=== PATIENT | male | born 1945 | race Caucasian/White ===

== ENCOUNTER → 2020-07-16 08:34 | Outpatient (CLI) | payer MEDICARE, SELFPAY | PROVIDERS: Visit Provider Emergency Medicine | DX: E03.9 Hypothyroidism, unspecified (principal) | CPT/HCPCS: 36415; 84443 ==

== ENCOUNTER 2020-07-17 10:08 | Inpatient (IN) | payer MEDICARE, SELFPAY ==
[2020-07-17] VITALS (32 sets, daily range): BP systolic 64–135; BP diastolic 0–91; PULSE 0–101; RESP 6–24; TEMP 36.7–37.4; O2SAT 78–100; BMI 26.6; BMI 27.8; BMI 25.4
--- NOTE | 2020-07-17 | XR_ITS ---
PROCEDURE: XR CHEST PORTABLE CLINICAL HISTORY: RESP DISTRESS Patient unconscious COMPARISON: No exams were available for comparison FINDINGS: The lung merchant are fairly well expanded. There are monitor lines overlying the chest and a a resuscitation pad overlying the right mid chest somewhat obscuring the underlying lung. There may be minimal atelectasis or scarring in left perihilar region. There is a tracheostomy cannula in good position. Cardiac size is grossly normal, there are sternal wire sutures surgical clips likely from previous CABG. IMPRESSION: Probable left perihilar atelectasis or scarring, otherwise no significant acute chest pathology noted Dictated by: Dr. Francisco Ocampo MD 07/17/2020 10:58 Dr. Francisco Ocampo MD in [place] 07/17/2020 10:58
--- NOTE | 2020-07-17 10:24 | ECG_ITS ---
APPROVED REPORT Exam: Resting ECG HR:97 bpm ECG Measurements Heart Rate 97 AXES GA 146 P 14 QRSd 150 QRS -89 QT 426 T 83 QTc 541 Conclusion Normal sinus rhythm Left axis deviation Right bundle branch block Possible Lateral infarct, age undetermined Abnormal ECG Electronically signed by : Max Graham, 07/18/2020 17:48:17
--- NOTE | 2020-07-17 10:45 | PC.NURSE ---
spoke with pts daughter on the phone (Thalia Amanda) who is also pts POA. Pt daughter does confirm pt is a full code status. States she lives several hours from here and would not be able to come up here. States [facility] and she would consent [facility]. Stated to pts daughter that we will contact her back with a POC for pt.
[2020-07-17 10:50] LABS: Adenovirus,PCR Not Detected (NotDetected); Bordetella Pertussis Not Detected (NotDetected); Chlamydophila Pneumoniae, PCR Not Detected (NotDetected); Coronavirus 19, PCR Not Detected (NotDetected); Coronavirus 229E Not Detected (NotDetected); Coronavirus NL63 Not Detected (NotDetected); Coronavirus OC43 Not Detected (NotDetected); Coronovirus HKU1,PCR Not Detected (NotDetected); Human Metapneumovirus Not Detected (NotDetected); Influenza A, PCR Not Detected (NotDetected); Influenza AH1, 2009 Not Detected (NotDetected); Influenza AH1, PCR Not Detected (NotDetected); Influenza AH3,PCR Not Detected (NotDetected); Influenza B, PCR Not Detected (NotDetected); Mycoplasma Pneumoniae, PCR Not Detected (NotDetected); Parainfluenza 1, PCR Not Detected (NotDetected); Parainfluenza 2, PCR Not Detected (NotDetected); Parainfluenza 3, PCR Not Detected (NotDetected); Parainfluenza 4, PCR Not Detected (NotDetected); Respiratory Syncytial Virus Not Detected (NotDetected); Rhinovirus/Enterovirus Not Detected (NotDetected)
[2020-07-17 11:00] LABS: ABG Base Excess 3.4 mmol/L (-2.4-2.3); ABG HCO3 28.3 mmhg (22.0-26.0); ABG Oxygen Saturation 100 % (90-100); ABG PCO2 47.2 mmhg (35.0-45.0); ABG PO2 408.9 mmhg (80-100); ABG TCO2 29.7 mmhg (23-27); Oxygen 100 AMBU %
[2020-07-17 11:01] LABS: Source L FEMORAL
--- NOTE | 2020-07-17 11:17 | PC.NURSE ---
Called radiology for chest xray
--- NOTE | 2020-07-17 11:19 | HMH.EDGENADL ---
ED Disposition Clinical Impression: Cardiac arrest, Hypernatremia Respiratory failure Qualifiers: Chronicity: acute Respiratory failure complication: hypoxia Qualified Code(s): J96.01 - Acute respiratory failure with hypoxia Hypotension Qualifiers: Hypotension type: unspecified hypotension type Qualified Code(s): I95.9 - Hypotension, unspecified Disposition: Admitted As Inpatient Condition on Discharge: Serious - Critical Care Critical Care Time: Yes Attestation: On 07/17/20, the high probability of a clinically significant, sudden or life threatening deterioration of the following system(s) required my full and direct attention, intervention and personal management. The time I documented below is in addition to time spent performing reported procedures but includes the following listed in this critical care notation. Total Critical Care Time: 45 Vital system(s) involved:: Circulatory Failure, Respiratory Failure My critical care processes included: Assessment & monitoring of V/S, Initial and Re-exams, Data Review/Interpretation, Coordinating Care, Medication Orders and management, Documentation Medical Decision Making - Medical Records Medical records reviewed: Yes: I reviewed the patient's medical records. MR Comment: half-way records reviewed. - Martin Inquiry Pt receiving controlled substance: No Vital Signs: 07/17/20 10:10 07/17/20 10:37 07/17/20 11:10 Temperature Temperature Source Pulse Rate 87 Pulse Rate [Bilateral Femoral] 0 L Respiratory Rate 6 L 24 24 Blood Pressure Blood Pressure [Right Arm] 64/0 L Blood Pressure Mean Blood Pressure Mean [Right Arm] 21 Blood Pressure Source [Right Arm] Manual Cuff/ Palpation Blood Pressure Position [Right Arm] Supine 02 Sat by Pulse Oximetry 78 L 99 94 L Oxygen Delivery Method Trach Collar/ Tube Mechanical Ventilation 07/17/20 11:11 07/17/20 11:15 07/17/20 11:26 Temperature Temperature Source Pulse Rate 87 86 Pulse Rate [Bilateral Femoral] Respiratory Rate 24 24 24 Blood Pressure 81/41 L 91/46 L Blood Pressure [Right Arm] Blood Pressure Mean 50 56 Blood Pressure Mean [Right Arm] Blood Pressure Source [Right Arm] Blood Pressure Position [Right Arm] 02 Sat by Pulse Oximetry 90 L 96 Oxygen Delivery Method 07/17/20 11:30 07/17/20 11:45 07/17/20 12:00 Temperature Temperature Source Pulse Rate 85 88 84 Pulse Rate [Bilateral Femoral] Respiratory Rate 24 24 Blood Pressure 88/44 L 88/44 L 102/51 L Blood Pressure [Right Arm] Blood Pressure Mean 56 62 Blood Pressure Mean [Right Arm] Blood Pressure Source [Right Arm] Blood Pressure Position [Right Arm] 02 Sat by Pulse Oximetry 92 L 96 99 Oxygen Delivery Method Trach Collar/ Tube Mechanical Ventilation 07/17/20 12:15 07/17/20 12:25 07/17/20 12:30 Temperature Temperature Source Pulse Rate 81 78 Pulse Rate [Bilateral Femoral] Respiratory Rate 24 22 Blood Pressure 98/48 L 97/50 L Blood Pressure [Right Arm] Blood Pressure Mean 60 62 Blood Pressure Mean [Right Arm] Blood Pressure Source [Right Arm] Blood Pressure Position [Right Arm] 02 Sat by Pulse Oximetry 97 98 Oxygen Delivery Method Trach Collar/ Tube Mechanical Ventilation 07/17/20 12:45 07/17/20 13:00 07/17/20 13:10 Temperature Temperature Source Pulse Rate 84 82 Pulse Rate [Bilateral Femoral] Respiratory Rate 24 24 18 Blood Pressure 98/55 L 103/57 L Blood Pressure [Right Arm] Blood Pressure Mean 70 Blood Pressure Mean [Right Arm] Blood Pressure Source [Right Arm] Blood Pressure Position [Right Arm] 02 Sat by Pulse Oximetry 99 98 98 Oxygen Delivery Method 07/17/20 13:15 07/17/20 13:30 07/17/20 15:35 Temperature 98.1 F Temperature Source Axillary Pulse Rate 77 75 84 Pulse Rate [Bilateral Femoral] Respiratory Rate 18 18 22 Blood Pressure 105/56 L 94/52 L 108/62 L Blood Pre
--- NOTE | 2020-07-17 11:20 | XR_ITS ---
PROCEDURE: XR CHEST PORTABLE CLINICAL HISTORY: central venous catheter placement COMPARISON: CR XR CHEST PORTABLE from 07/17/2020 FINDINGS: 11:22 a.m.. Right IJ central venous line has been inserted. The tip is in the region the distal SVC. No evidence of pneumothorax. 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 Tracheostomy tube is present. Monitoring device noted overlying the right lower chest. No lobar consolidation or collapse. IMPRESSION: Right IJ central line insertion as described above. No evidence of pneumothorax. The tip overlies the distal SVC region Dictated by: Manav Chan MD 07/17/2020 12:34 Manav Chan MD in [facility] 07/17/2020 12:34
[2020-07-17 11:44] LABS: Basophils % 0.1 % (0.1-2.0); Eosinophils % 0.1 % (0.1-12.0); Hematocrit 28.7 % (42.0-52.0); Hemoglobin 9.1 g/dL (14.1-18.0); Lymphocytes # 0.6 K/mm3 (0.7-4.5); Lymphocytes % 5.2 % (10-50); Mean Corpuscular HGB Conc 31.7 g/dL (31.8-35.4); Mean Corpuscular Hemoglobin 27.7 pg (27.0-31.2); Mean Corpuscular Volume 87.2 fl (80-94); Mean Platelet Volume 8.4 fl (7.4-10.4); Monocytes # 0.6 K/mm3 (0.1-1.0); Monocytes % 4.7 % (1.7-9.3); Neutrophils # 10.6 K/mm3 (1.8-7.8); Neutrophils % 89.9 % (37.0-80.0); Platelet Count 186 K/mm3 (142-424); Red Blood Count 3.29 M/mm3 (4.60-6.20); Red Cell Distribution Width 15.3 % (11.5-17.5); White Blood Count 11.8 K/mm3 (4.8-10.8)
[2020-07-17 11:47] LABS: MANUAL DIFFERENTIAL MANUAL DIFFERENTIAL (MANUAL DIFF)
[2020-07-17 11:54] LABS: Chloride 116 mmol/L (98-107); Potassium 4.4 mmoL/L (3.5-5.1)
[2020-07-17 11:56] LABS: Blood Urea Nitrogen 63 mg/dl (9-20); Creatinine Clearance Estimated 58 mL/min (50-200); Estimated Glomerular Filt Rate 49 ml/min (>60); GFR (African American) 60 ML/MIN (>60)
[2020-07-17 11:57] LABS: Alanine Aminotransferase 51 U/L (12-78); Albumin Level 2.5 g/dl (3.5-5.0); Alkaline Phosphatase 74 U/L (38-126); Anion Gap 11.4 mEq/L (5-15); Aspartate Amino Transferase 55 U/L (17-59); Bilirubin,Total 0.4 mg/dl (0.2-1.3); Calcium 8.4 mg/dl (8.4-10.2); Carbon Dioxide 29 mmol/L (22.0-30.0); Globulin 2.6 g/dL (1.3-3.2); Glucose 268 mg/dl (74-100); Total Protein,Serum 5.1 g/dl (6.3-8.2)
[2020-07-17 11:59] LABS: Eosinophils % 1 % (0-3); Hypochromasia 1+; Lymphocytes % 5 % (10-50); Monocytes % 5 % (2-9); Neutrophils % 89 % (42-76); Platelet Estimate Normal; Total Cells Counted 100
[2020-07-17 12:01] LABS: Lactic Acid 2.8 mmol/L (0.7-2.1)
--- NOTE | 2020-07-17 12:01 | PC.NURSE ---
Dr. Owens notified of critical Sodium of 151.
[2020-07-17 12:02] LABS: Sodium 152 mmol/L (136-145)
--- NOTE | 2020-07-17 12:02 | PC.NURSE ---
Kierra called from Lab with critical sodium 152
[2020-07-17 12:09] LABS: Troponin I 0.13 ng/ml (0.00-0.034)
--- NOTE | 2020-07-17 12:11 | PC.NURSE ---
patient came in via [facility]. when patient was transferred to [place] it was discovered that his trach cuff was deflated. resp. care inflated cuff and continued bagging
[2020-07-17 12:13] LABS: Microscopic,Cath URINE MICROSCOPIC (MICROSCOPIC)
--- NOTE | 2020-07-17 12:15 | PC.NURSE ---
Titrated norepinepherine up to 3mcg/min d/t map of 64.
[2020-07-17 12:29] LABS: Appearance,Urine/Cath CLEAR (Clear); Bilirubin,Cath Negative (Negative); Blood, Urine/Cath 2+ (Negative); Color,Urine/Cath YELLOW (Yellow); Glucose,Urine/Cath (UA) Negative (Negative); Ketones,Urine/Cath Negative (Negative); Leukocyte Esterase,Cath TRACE (Negative); Nitrate,Cath POSITIVE (Negative); Protein,Urine/Cath 1+ (Negative); Urobilinogen,Cath 0.2 EU/dl (0.2)
[2020-07-17 12:39] LABS: Bacteria,Urine/Cath 3+ /lpf
[2020-07-17 12:47] LABS: ABG Base Excess 4.4 mmol/L (-2.4-2.3); ABG HCO3 26.9 mmhg (22.0-26.0); ABG Oxygen Saturation 95 % (90-100); ABG PCO2 31.7 mmhg (35.0-45.0); ABG PO2 66.6 mmhg (80-100); ABG TCO2 27.8 mmhg (23-27); Allen's Test Patient Unable; Oxygen 100 %; PEEP 5; Source Right Radial; Tidal Volume 480; Vent Rate 24
[2020-07-17 12:50] LABS: ABG PH 7.55 mmol/L (7.35-7.45)
--- NOTE | 2020-07-17 13:15 | PC.NURSE ---
[facility] info given and said they would call back.
--- NOTE | 2020-07-17 13:33 | PC.NURSE ---
titrated levophed up to 4mcg/min
--- NOTE | 2020-07-17 13:35 | PC.NURSE ---
Dr. Owens speaking with Dr. Hidalgo
--- NOTE | 2020-07-17 13:37 | CA_ITS ---
APPROVED REPORT EXAM: Comprehensive 2D, Doppler, and color-flow Echocardiogram Music Pastor: RADHA Baum, RVS Ht: 5 ft 11 in Wt: 200lbs BSA: 2.11 BP: 102/51 mmHg Rhythm: RBBB Indications: respiratoy failure, Hypoxia, RBBB Echo Enhancing Agent Comments: Pt supine and ventillaed throughout exam poor acoustics throughout. 2D Dimensions Aortic Root 3.57 cm LA Volume 42.40 mL Left Atrium 2.67 cm LA Volume Index 20.10 mL/m2 (M/F) 16-34 LVOT 1.87 cm (M/F) 1.5-2.5 M-Mode Dimensions RVDd 2.26 cm (0.9-2.6) LA Diam 2.94 cm (1.9-4.0) LVDd 6.09 cm (3.5-5.7) Ao Diam 3.75 cm (2.0-3.7) LVDs 4.82 cm (3.5-5.7) IVSd 1.11 cm (0.6-1.1) PWd 0.85 cm (0.6-1.1) EF (Teich) 38.00% EPSs 1.41 cm FS 18.70% EDV (Teich) 175.20 mL TAPSE 0.72 (<1.7) ESV (Teich) 108.60 mL LV Diastology E Decel Time 207.00 (160-240 msec) E/A Ratio 1.11 MED E' 6.50 (< 7 cm/sec) MED A' 8.60 cm/s E'/MED E' Ratio 11.62 (>14) LAT E' 7.00 (<10 cm/sec) LAT A' 7.30 cm/s E/LAT E' Ratio 10.79 (>14) Aortic Valve LVOT Max 79.00 (70-110 cm/s) LVOT VTI 11.76 cm AI PHT 416.00 ms AO Peak GR. 3.70 mmHg Mitral Valve MV E Max Michael. 76.00 (40-130 cm/s) MV A Velocity 68.00 (40-130 cm/s) E/A Ratio 1.11 MV Decel. Time 207.00 (160-240 ms) MV Mean Gr. 1.00 (<2mmHg) MV PHT 61.00 ms Pulmonary Valve PV Peak Velocity 51.00 (50-150 cm/s) Tricuspid Valve TR P. Velocity 183.00 cm/s RAP Estimate 10.00 mmHg RVSP 23.40 mmHg Left Ventricle Technically difficult study because of the patient factors and poor acoustic windows, repeat study with Definity contrast is recommended, left atrium is mildly enlarged, left ventricle is normal size, mild concentric left ventricular hypertrophy, reduced left ventricular systolic function, visually estimated ejection fraction 35 to 40%, there appears to be moderate hypokinesis involving the inferior inferolateral and posterior wall. Grade 2 diastolic dysfunction seen without tissue Doppler evidence of raise left atrial pressure. Right Ventricle Right atrium and right ventricle are normal size and contractility. Aortic Valve Aortic valve is thickened and calcified there is no aortic stenosis, there is mild aortic insufficiency. Mitral Valve Mitral valve leaflets are minimally thickened, there is mild mitral regurgitation. Tricuspid Valve Tricuspid valve grossly normal, there is mild tricuspid regurgitation, tricuspid regurgitation jet velocity is inadequate for calculation of the right ventricular systolic pressure. Pulmonic Valve Pulmonic valve is poorly visualized. Great Vessels Aortic root is normal size. Pericardium Small pericardial effusion noted. Conclusion 1. Mildly enlarged left atrium, normal left ventricular size, mild concentric left ventricular hypertrophy, visually estimated ejection fraction 35 to 40% with segmental wall motion abnormality described above, endocardial surfaces are poorly visualized, repeat study with Definity contrast is recommended. Grade 2 diastolic dysfunction seen without tissue Doppler evidence of raise left atrial pressure. 2. Mild aortic, mild mitral and tricuspid regurgitation. 3. Small pericardial effusion noted. Electronically signed by : Maninder Cruz, 07/17/2020 19:50:09
--- NOTE | 2020-07-17 13:38 | CT_ITS ---
PROCEDURE: CT ANGIO CHEST CLINCIAL INDICATION: hypoxia COMPARISON: No exams were available for comparison TECHNIQUE: IV Contrast: 70ML Isovue 370 Axial images obtained with sagittal and coronal reformats. All CT scans at the facility use one or more dose reduction, viz: automated exposure control, ma/kV adjustment per patient size (including targeted exams where dose is matched to indication, i.e. head), or iterative reconstruction technique. FINDINGS: There is a tracheostomy tube present in good position. Fluid density is present cephalad to the tracheostomy. No evidence of aortic aneurysm or dissection. 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 No evidence of pulmonary embolus. The peripheral pulmonary arteries are not well opacified in the posterior lung bases but may be related to underlying atelectatic changes. A definite embolus is not identified. There are COPD changes. There is a patchy area of infiltrate in the left upper lobe superiorly suspicious for a small area of pneumonia. There is also atelectatic changes in the left lower lobe with some mild opacification also suspicious for pneumonia. Nodular opacity is present in the left lower lobe posteriorly measuring 12 mm and may be due to an area of focal atelectatic change. Atelectatic changes are present posteriorly. There is trace left-sided pleural effusion. There are mild atelectatic changes in the right middle lobe. No acute bony findings. There is bilateral gynecomastia. Scattered gas is present in the region of the left subclavian vein. IMPRESSION: 1. No definite pulmonary embolus. 2. COPD with scattered areas of atelectatic and fibrotic change with pneumonia in the left upper lobe and possibly left lower lobe with trace left effusion. 3. Tracheostomy tube present. Fluid is present above the entrance of the tube into the trachea. Dictated by: Manav Chan MD 07/17/2020 16:06 Manav Chan MD in [place] 07/17/2020 16:06
--- NOTE | 2020-07-17 13:43 | PC.NURSE ---
spoke with Jeanette, subwarehouse supervisor, and Angelique, Care management, regarding the need for pt admission.
--- NOTE | 2020-07-17 14:48 | SW/DCPLANNER ---
Addendum entered by [facility] 07/23/20 11:14: I will also notify [facility]PS worker regarding placement. Addendum entered by [facility] 07/23/20 11:11: [facility] has denied this patient. Daughter is agreeable to [facility]. This patient will discharge to [facility] today once PICC is completed, IV antibiotics are administered for today and COVID swab is resulted. Addendum entered by [facility] 07/23/20 09:48: I have spoke with daughter this morning regarding patient being accepted to [facility]. Daughter stated that she spoke with nursing facility in [facility] where she resides ([facility]) and would like for his information to be faxed there. I spoke with Reyna at [place] [facility] and have faxed information. I informed daughter that precert has been started at [facility] and if I do not hear back from [facility] then patient will be ready for discharge to [facility] today. Daughter agreed with this plan. I will continue to follow up with facilities. [place] phone: [phone] fax: [phone] Addendum entered by [facility] 07/23/20 07:18: I was contacted by Dena from [facility] late afternoon on Thursday: stating that she is willing to accept this patient at time of discharge. I will follow up with MD and family this morning regarding [facility]. Discharge date is unknown at this time. Addendum entered by [facility] 07/20/20 14:50: Lalita with [facility] has been to [facility] to evaluate this patient. Lalita stated that she is going to be making contact with patients daughter (Thalia) and Shadi Campbell then will follow up with me Thursday morning. Lalita cell: [phone] Addendum entered by [facility] 07/20/20 14:30: Patient information has also been faxed to [facility] and [facility]. Addendum entered by [facility] 07/20/20 13:51: [facility] and [facility] are currently reviewing this patients information. I have left a voicemail for [facility], [facility] and [facility] w/ no call back at this time. [facility] can NOT accept this patient due to not actively being on ventilator. I will continue to follow up with facilities. Lalita with [facility] has contacted me stating that she will be here this afternoon to evaluate this patient. Patient is not ready for discharge at this time. Addendum entered by Leola Holyoke 07/20/20 11:48: Patient information has been faxed to Milvia with [facility]. I will follow up with Milvia once patient information is reviewed. phone: [phone] fax: [phone] Addendum entered by Leola Holyoke 07/19/20 14:16: Patients daughter is present to visit patient. I spoke with daughter in patients room regarding discharge plans. Daughter did speak with Shadi Campbell and decided to not do bedhold. Daughter is aware that current facilities reviewing patients information: [facility], [facility], added to waiting list at [facility]. I will continue to follow up with facilities, family and MD. Discharge date is unknown at this time. Case was reported to [facility] however I have not heard back from a [facility] at this time. Addendum entered by [facility] 07/19/20 10:40: Patient information has also been faxed to Tara at [facility]. phone: [phone] fax: [phone] Addendum entered by Leola Holyoke 07/19/20 10:03: This case did meet criteria with [facility] Intake. I have also faxed patient information to [facility] in [facility]: [facility] has stated that they do have a lengthy waiting list but can add him. [facility] phone: [phone] fax: [phone] Addendum entered by Leola Holyoke 07/18/20 14:53: Rishabh with [facility] has called back stating they have had this patient in the past and they are interested in reviewing patient information. Rishabh has stated that they can NOT accept patients on vent
--- NOTE | 2020-07-17 15:29 | HMH.CNCARD ---
History of Present Illness Consult date: 07/17/20 Requesting physician: Dimitrios Owens Consult reason: shortness of breath Chief complaint: Respiratory Distress History of present illness: 75-year-old male presented to the ED in respiratory distress. Patient is a resident of [facility]. Upon arriving into the emergency room, patient went into cardiac arrest. radiation monitor revealed asystole. Cardiac elicitation began and lasting for 16 minutes. radiation monitor revealed normal sinus rhythm, left axis deviation, right bundle branch block, abnormal ECG with a heart rate of 97 bpm. Patient remains hypotensive. Patient is on a norepinephrine drip. Patient is unable to respond. Patient does have tracheostomy in place. Rai-yspke-pduu ventilation to the tracheostomy noted. Patient is at 100% on ventilation. Patient does have gastrotomy tube. Patient is a quadriplegic. Patient is a diabetic. Unable to receive much information regarding this patient due to patient being new to [facility]. Troponin x1 elevated at 0.13 this is possibly due to to compressions being performed. Lab work revealed sodium 152. Preliminary echocardiogram reveals abnormal. Mid posterior questionable aneurysm and global hypokinesis with an EF measuring 35 to 40%. Waiting on official report. Patient is currently on a norepinephrine drip. Managed by PCP. Benito catheter intact draining dark yellow urine. Discussed plan of care with Dr. Ribeiro. Obtain echocardiogram to assess LV function and valve status. Management of diabetes deferred to PCP. Pending on the results of the echocardiogram changes to medication and therapy treatment may be recommended. Please continue to monitor patient status. Please notify cardiology of any changes in patient status. Patient does need supportive care at this time. Thank you for allowing cardiology to participate in the care of this patient. [facility] History *Have you ever received a pneumonia vaccine?: Yes *Have you received a flu vaccine this season?: Yes - *Social History *Occupational Status:: other *Travel in the last 8 weeks: Inside the [place] Family Hx:: Unable to obtain Meds Home Medications Medication Instructions Recorded Confirmed Type ALPRAZolam [Xanax 0.5mg tab] 0.5 mg NG-TUBE BID 07/17/20 07/17/20 History Amiodarone HCl [Pacerone] 200 mg NG-TUBE HS 07/17/20 07/17/20 History Apixaban [Eliquis] 5 mg NG-TUBE BID 07/17/20 07/17/20 History Aspirin [Aspirin 81mg chewable 81 mg PO DAILY 07/17/20 07/17/20 History tab] Atorvastatin Calcium [Lipitor 40mg 40 mg PO HS 07/17/20 07/17/20 History Tablet*] Benztropine Mesylate [Cogentin 1mg 1 mg NG-TUBE DAILY 07/17/20 07/17/20 History tablet] Folic Acid 1 mg NG-TUBE DAILY 07/17/20 07/17/20 History Insulin Detemir [Levemir Flextouch] 15 unit SQ DAILY 07/17/20 07/17/20 History Insulin Lispro [HumaLOG 100 3 units SQ HS 07/17/20 07/17/20 History units/mL 3mL vial (SSI)] Multivit with Calcium,Iron,Min 1 each NG-TUBE DAILY 07/17/20 07/17/20 History [Maximum Daily Multivitamin] levothyroxine 88 mcg tablet 88 mcg PO DAILY 07/17/20 History polyethylene glycoL 3350 [Gavilax] 17 gm NG-TUBE DAILY 07/17/20 07/17/20 History Allergies Allergy/AdvReac Type Severity Reaction Status Date / Time linezolid [From Zyvox] Allergy Verified 07/17/20 11:47 vancomycin Allergy Verified 07/17/20 11:47 Exam Vital signs and Labs for Last 24 Hours: Pulse Resp BP Pulse Ox 75 18 94/52 L 99 07/17/20 13:30 07/17/20 13:30 07/17/20 13:30 07/17/20 13:30 Laboratory Results - last 24 hr 07/17/20 09:31: Specimen Source L femoral, O2 % 100 ambu, ABG pH 7.40, ABG pCO2 47.2 H, ABG pO2 408.9 H, ABG HCO3 28.3 H, ABG Total CO2 29.7 H, ABG O2 Saturation 100, ABG Base Excess 3.4 H 07/17/20 11:23: WBC 11.8 H, RBC 3.29 L, Hgb 9.1 L, Hct 28.7 L, MCV 87.2, MCH 27.7, MCHC 31.7 L, RDW 15.3, Plt Count 186, MPV 8.4, Neut
--- NOTE | 2020-07-17 15:31 | P.CONPHA_ITS ---
[facility] Pharmacy VTE Monitoring - Patient Demographics Admission date: 07/17/20 Report Date: 07/17/20 Time: 15:31 Allergies/Adverse Reactions: Patient Allergies linezolid [From Zyvox] Allergy (Verified 07/17/20 11:47) vancomycin Allergy (Verified 07/17/20 11:47) Height: 1.8 m Weight: 90.718 kg Patient Problems: Current Active Problems Respiratory failure (Acute) Cardiac arrest (Acute) Hypotension (Acute) Hypernatremia (Acute) - VTE Risk Labs: VTE Related Lab Results Hgb 9.1 g/dL (14.1-18.0) L 07/17/20 11:23 Hct 28.7 % (42.0-52.0) L 07/17/20 11:23 Plt Count 186 K/mm3 (142-424) 07/17/20 11:23 BUN 63 mg/dl (9-20) H 07/17/20 11:23 Creatinine 1.40 mg/dl (0.66-1.25) H 07/17/20 11:23 Estimated Creat Clear 58 mL/min (50-200) 07/17/20 11:23 Clinical Trial Participant: No - Prophylaxis VTE Prophylaxis Ordered?: Yes Types of VTE Prophylaxis: TEDS Knee High
--- NOTE | 2020-07-17 15:35 | PC.NURSE ---
preliminary echo report called to libby greer with cardiology, report sheet was faxed to her per her request.
[2020-07-17 15:36] LABS: Reflex Lactic Add Lactic Reflex
--- NOTE | 2020-07-17 15:40 | PC.NURSE ---
PT TRANSPORTED FROM ER TO CT SCAN ON TRANSPORT VENT (480,18, AND 100%). PT TOLERATED WELL. FROM CT SCAN PT TAKEN TO [id number]. VENT CHECK TO FOLLOW IN CHARTING
[2020-07-17 15:54] LABS: Troponin I 0.62 ng/ml (0.00-0.034)
[2020-07-17 16:37] LABS: Lactic Acid Follow Up (RFLX 1) 1.7 mmol/L (0.7-2.1)
[2020-07-17 17:05] LABS: POC Glucose,Bedside 154 (70-110)
--- NOTE | 2020-07-17 18:31 | PC.NURSE ---
Addendum entered by Nguyen Toledo RN 07/17/20 18:38: bloody drainage and mucus dried to trach Original Note: trach
--- NOTE | 2020-07-17 18:34 | PC.NURSE ---
Addendum entered by Nguyen Toledo RN 07/17/20 18:35: buildup in oral cavity Original Note:
--- NOTE | 2020-07-17 18:35 | PC.NURSE ---
Addendum entered by Nguyen Toledo RN 07/17/20 18:36: area to ear, no drainage, black scab Original Note:
--- NOTE | 2020-07-17 18:36 | PC.NURSE ---
Addendum entered by Nguyen Toledo RN 07/17/20 18:36: Blood blister to left sole Original Note:
--- NOTE | 2020-07-17 18:37 | PC.NURSE ---
Addendum entered by Nguyen Toledo, SJ 07/17/20 18:37: stage 2 to bottom, no drainage, are macerated Original Note:
--- NOTE | 2020-07-17 18:55 | PC.NURSE ---
Pt is currently on levophed at 6mcg/min. VS as documented in the intervention. Oral care has been provided. When pt first arrived to the floor there was large amount of buildup of debris in patients oral cavity. Stage 2 noted to buttocks, dressing applied to prevent further breakdown. Large blood blister noted to sole of left foot. Growth noted to proximal ear. Pics on chart and family notified. Vent settings as noted in intervention. Pt will open eyes to name but unable to follow commands. Benito is to bedside draining cloudy, straw colored urine. Approximately 600mls out since arrival to the floor. Will give report to oncoming nurse.
[2020-07-17 19:47] LABS: POC Glucose,Bedside 140 (70-110)
--- NOTE | 2020-07-17 20:09 | HMH.HP ---
*Admission Date: 07/17/20 *Chief complaint: sob *History of present illness: this pt was sent from [facility] for resp distress - brought in by ambulance from [facility] for respiratory distress and hypoxia. The patient is unable to give any history. He has a tracheostomy and gastrostomy tube and is reportedly new to [facility]. Found to have low pulse oximetry in the 50s today. He is brought in by ambulance. Initially they had him on 15 L oxygen through his tracheostomy. During transport they called in to the emergency department and reported that his pulse oximetry was in the 60s. They were instructed to begin [id number] ventilations. A right tibia intraosseous catheter was started during transport. Reportedly the family requested that the patient be transferred to the [facility] in [place], but EMS personnel declined to transport him there due to his condition. e patient's clinical information, including history, exam, laboratory and radiology results and ED course. Per hospital procedure, I will write temporary bridge inpatient orders on the patient. Specific orders requested by the admitting physician: Echocardiogram, CT angiogram of chest, cardiology consult, pulmonary consult, admit to stepdown. Chest compressions started, [id number] ventilations through his tracheostomy tube were continued. It was found that his tracheostomy tube balloon was not inflated. This was inflated to improve ventilation and oxygenation. The patient was given several doses of intravenous epinephrine along with bicarbonate. He then went into a wide-complex bizarre rhythm without a pulse and was given calcium for the possibility of hyperkalemia. He then went into wide-complex tachycardia with a pulse and was defibrillated x1. Resultant rhythm was wide-complex irregular tachycardia consistent with atrial fibrillation with aberrancy, fairly quickly the QRS complex narrowed from its bizarre appearance to a more typical bundle branch block. The patient's color improved markedly. Pulse ox on the ventilator was 100% after return of spontaneous circulation. pt admitted to icu [facility] History I have reviewed the patient's past medical history: Yes Medical History: Reports:: Arrhythmia, Atrial Fibrillation, Congestive Heart Failure, Diabetes Mellitus Type 2, Hyperlipidemia, Peripheral Vascular Disease *Have you ever received a pneumonia vaccine?: Yes *Have you received a flu vaccine this season?: Yes - *Social History Alcohol Intake: never *Occupational Status:: other Housing: correction *Travel in the last 8 weeks: None Family Hx:: Unable to obtain Review of Systems - Review of Systems Review of systems:: unable to obtain - *Neurologic Reports abnormal walking Meds Home Medications Medication Instructions Recorded Confirmed Type ALPRAZolam [Xanax 0.5mg tab] 0.5 mg G-TUBE BID 07/17/20 07/18/20 History Acetaminophen [Feverall] 650 mg RC Q4HWA 07/17/20 07/17/20 History Acetylcysteine [Acetylcysteine 20% 1 ml IN QIDRT 07/17/20 07/17/20 History 1mL syr (Resp Therapy)] Amiodarone HCl [Pacerone] 200 mg NG-TUBE HS 07/17/20 07/17/20 History Apixaban [Eliquis] 5 mg NG-TUBE BID 07/17/20 07/17/20 History Ascorbic Acid [Vitamin C] 500 mg G-TUBE BID 07/17/20 07/18/20 History Aspirin [Aspirin 81mg chewable 81 mg PO DAILY 07/17/20 07/17/20 History tab] Atorvastatin Calcium [Lipitor 40mg 40 mg G-TUBE HS 07/17/20 07/18/20 History Tablet*] Benztropine Mesylate [Cogentin 1mg 1 mg NG-TUBE DAILY 07/17/20 07/17/20 History tablet] Cetirizine HCl [Zyrtec] 10 mg G-TUBE DAILY 07/17/20 07/18/20 History Docusate Sodium 100 mg G-TUBE DAILY 07/17/20 07/18/20 History Folic Acid 1 mg NG-TUBE DAILY 07/17/20 07/17/20 History Insulin Detemir [Levemir Flextouch] 15 unit SQ DAILYDM 07/17/20 07/18/20 History Insulin Lispro [HumaLOG 100 3 units SQ 1800 07/17/20 07/18/20 History units/mL 3mL vial (SSI)
[2020-07-18] VITALS (35 sets, daily range): BP systolic 85–163; BP diastolic 39–75; PULSE 70–98; RESP 16–37; TEMP 36.6–37.9; O2SAT 92–100; BMI 23.4
--- NOTE | 2020-07-18 05:00 | XR_ITS ---
PROCEDURE: XR CHEST PORTABLE CLINICAL HISTORY: Pt intubated. Respiratory failure COMPARISON: CR XR CHEST PORTABLE from 07/17/2020 CR XR CHEST PORTABLE from 07/17/[address] ANGIO CHEST from 07/17/2020 FINDINGS: 0500 hours. Tracheostomy tube is in place. Right IJ central venous line present. The tip is overlies region the proximal aspect of the right atrium. Atelectatic changes have developed in the right lower lobe. 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 No evidence of CHF. No acute bony abnormalities. IMPRESSION: Right basilar atelectasis. Dictated by: Manav Chan MD 07/18/2020 06:18 Manav Chan MD in OV 07/18/2020 06:18
[2020-07-18 05:37] LABS: POC Glucose,Bedside 137 (70-110)
[2020-07-18 06:22] LABS: Basophils % 0.1 % (0.1-2.0); Eosinophils # 0.1 K/mm3 (0.0-0.4); Eosinophils % 0.4 % (0.1-12.0); Hematocrit 30.8 % (42.0-52.0); Hemoglobin 9.9 g/dL (14.1-18.0); Lymphocytes # 1.2 K/mm3 (0.7-4.5); Lymphocytes % 8.9 % (10-50); Mean Corpuscular HGB Conc 32.3 g/dL (31.8-35.4); Mean Corpuscular Hemoglobin 27.5 pg (27.0-31.2); Mean Corpuscular Volume 85.2 fl (80-94); Mean Platelet Volume 8.8 fl (7.4-10.4); Monocytes # 0.7 K/mm3 (0.1-1.0); Neutrophils # 11.2 K/mm3 (1.8-7.8); Neutrophils % 85.6 % (37.0-80.0); Platelet Count 175 K/mm3 (142-424); Red Blood Count 3.62 M/mm3 (4.60-6.20); Red Cell Distribution Width 15.9 % (11.5-17.5); White Blood Count 13.1 K/mm3 (4.8-10.8)
[2020-07-18 06:26] LABS: Anion Gap 10.4 mEq/L (5-15); Blood Urea Nitrogen 56 mg/dl (9-20); Calcium 8.5 mg/dl (8.4-10.2); Carbon Dioxide 29 mmol/L (22.0-30.0); Chloride 117 mmol/L (98-107); Creatinine Clearance Estimated 52 mL/min (50-200); Estimated Glomerular Filt Rate 54 ml/min (>60); GFR (African American) 65 ML/MIN (>60); Glucose 133 mg/dl (74-100); Potassium 3.4 mmoL/L (3.5-5.1)
[2020-07-18 06:28] LABS: Sodium 153 mmol/L (136-145)
[2020-07-18 06:32] LABS: MANUAL DIFFERENTIAL MANUAL DIFFERENTIAL (MANUAL DIFF)
[2020-07-18 06:55] LABS: ABG Base Excess 2.4 mmol/L (-2.4-2.3); ABG HCO3 25.3 mmhg (22.0-26.0); ABG Oxygen Saturation 93 % (90-100); ABG PCO2 31.5 mmhg (35.0-45.0); ABG PH 7.52 mmol/L (7.35-7.45); ABG TCO2 26.2 mmhg (23-27)
[2020-07-18 07:00] LABS: Allen's Test UNABLE; Oxygen 40% %; PEEP 5; Source R RADIAL; Tidal Volume 480; Vent Rate 18
--- NOTE | 2020-07-18 07:35 | DIET.NUTRFU ---
Addendum entered by Thalia Martinez 07/23/20 08:15: Water flushes slightly decreased to 200ml q 4h (2300ml total fluids) Addendum entered by Thalia Martinez 07/23/20 08:11: Continues tube feeds of Osmolite 1.2 at goal rate of 69ml/h with good tolerance. BG moderate- avg. 165, bowel function normal, weight up 2#, 1+ edema. No changes to regimen att, continuing to monitor. Addendum entered by Thalia Martinez 07/20/20 15:12: Tolerating tube feeds well. Electrolytes wnl, had 2 BMs yesterday, weight stable, BG moderate-avg. 160. No changes to regimen at this time, continuing to monitor and alter as indicated. Addendum entered by Thalia Martinez 07/18/20 08:34: water flushes 230ml q 4h, not q 6h Original Note: Nutritional consult received for enteral nutrition initiation. Pt admit from [facility]. He has a gtube and receives Isosource 1.5 at 63ml/h with water flushes of 250ml q 6h at LT. Most similar formula available at [facility] is Osmolite 1.2. Upon MD/TF initiation order Recommend initiating continuous tube feeding regimen of Osmolite 1.2 at 20ml/h and advance by 10ml/h q 8h as tolerated to goal rate of 69ml/h. Water flushes of 230ml q 6h meet additional fluid needs. This regimen provides 2000kcal, 92g protein, 262g cho, 65g fat, and 1299ml free water (2679ml total fluids with flushes). Will monitor pt tolerance/nutrition related labs to alter regimen as indicated.
[2020-07-18 08:30] LABS: Lymphocytes % 3 % (10-50); Monocytes % 3 % (2-9); Neutrophils % 94 % (42-76); Total Cells Counted 100
[2020-07-18 08:36] LABS: Hypochromasia 1+
[2020-07-18 08:38] LABS: Platelet Estimate Normal
--- NOTE | 2020-07-18 09:18 | PC.NURSE ---
Dr. Valencia @ [facility]. He switched vent settings to SBT 50% 09/01. Keep TV>350 and repeat ABG in 1hr. RT notified. Tubefeeds started @ 20mL/hr.
--- NOTE | 2020-07-18 09:31 | HMH.PULMCON ---
*Admission Date: 07/17/20 *Reason for consult:: Acute hypoxic respiratory failure *History of present illness: Patient demented not responding appropriately to commands much of the history is obtained from chart review. 75-year-old jail resident with history of CHF, diabetes mellitus, atrial fibrillation, peripheral vascular disease had a tracheostomy and has been on long-term care facility was presented to hospital pleural status post PEA and found to be in asystole status of resuscitation of 60 minutes with return of spontaneous circulation patient pulmonary was called for further management. [facility] History Medical History: Reports:: Arrhythmia, Atrial Fibrillation, Congestive Heart Failure, Diabetes Mellitus Type 2, Hyperlipidemia, Peripheral Vascular Disease *Have you ever received a pneumonia vaccine?: Yes *Have you received a flu vaccine this season?: Yes - *Social History Alcohol Intake: never *Occupational Status:: other Housing: jail *Travel in the last 8 weeks: None Family Hx:: Unable to obtain ROS - Review of Systems Review of systems:: unable to obtain Patient demented not responding appropriately commands. Meds Home Medications Medication Instructions Recorded Confirmed Type ALPRAZolam [Xanax 0.5mg tab] 0.5 mg NG-TUBE BID 07/17/20 07/17/20 History Acetaminophen [Feverall] 650 mg RC Q4HWA 07/17/20 07/17/20 History Acetylcysteine [Acetylcysteine 20% 1 ml IN QIDRT 07/17/20 07/17/20 History 1mL syr (Resp Therapy)] Amiodarone HCl [Pacerone] 200 mg NG-TUBE HS 07/17/20 07/17/20 History Apixaban [Eliquis] 5 mg NG-TUBE BID 07/17/20 07/17/20 History Ascorbic Acid [Vitamin C] 500 mg NG-TUBE BID 07/17/20 07/17/20 History Aspirin [Aspirin 81mg chewable 81 mg PO DAILY 07/17/20 07/17/20 History tab] Atorvastatin Calcium [Lipitor 40mg 40 mg PO HS 07/17/20 07/17/20 History Tablet*] Benztropine Mesylate [Cogentin 1mg 1 mg NG-TUBE DAILY 07/17/20 07/17/20 History tablet] Cetirizine HCl [Zyrtec] 10 mg PO DAILY 07/17/20 07/17/20 History Docusate Sodium 50 mg NG-TUBE DAILY 07/17/20 07/17/20 History Folic Acid 1 mg NG-TUBE DAILY 07/17/20 07/17/20 History Insulin Detemir [Levemir Flextouch] 15 unit SQ DAILY 07/17/20 07/17/20 History Insulin Lispro [HumaLOG 100 3 units SQ HS 07/17/20 07/17/20 History units/mL 3mL vial (SSI)] Metoprolol Tartrate [Lopressor 25 mg NG-TUBE BID 07/17/20 07/17/20 History 25mg tablet] Multivit with Calcium,Iron,Min 1 each NG-TUBE DAILY 07/17/20 07/17/20 History [Maximum Daily Multivitamin] OLANZapine [Olanzapine Odt] 10 mg NG-TUBE BID 07/17/20 07/17/20 History Pantoprazole Sodium [Protonix 40mg 40 mg PO DAILY 07/17/20 07/17/20 History (granule) packet] Saw/Vit E/Sod Kitty/Lyc/Beta/Pyg 1 tab NG-TUBE BID 07/17/20 07/17/20 History [Prostate Health Caplet] Scopolamine 1 each TD TID 07/17/20 07/17/20 History Zinc Sulfate [Zinc Sulfate 220mg 220 mg PO DAILY 07/17/20 07/17/20 History capsule] hydrOXYzine HCL [Hydroxyzine HCl] 25 mg NG-TUBE BID 07/17/20 07/17/20 History levETIRAcetam [Keppra] 7.5 ml NG-TUBE BID 07/17/20 07/17/20 History levothyroxine 88 mcg tablet 88 mcg PO DAILY 07/17/20 07/17/20 History polyethylene glycoL 3350 [Gavilax] 17 gm NG-TUBE DAILY 07/17/20 07/17/20 History Allergies Allergy/AdvReac Type Severity Reaction Status Date / Time linezolid [From Zyvox] Allergy Verified 07/17/20 11:47 vancomycin Allergy Verified 07/17/20 11:47 Exam - Constitutional Constitutional:: Present: no acute distress, comfortable - Respiratory Exam Respiratory:: Present: bibailar crackels heard, no respiratory distress, normal respiratory effort - Cardiovascular Exam Cardiac:: Present: S1, S2 - GI Exam GI:: Present: soft Comments: PEG tube in place. Site appear clean. - Skin Exam Skin: Present: warm, no rash - Neurological Exam Neurological: Present: awake - Extremities Exam Extremities: Present: no cyanosis, no clubbing, no
[2020-07-18 10:07] LABS: Magnesium 2.1 mg/dl (1.6-2.3); Phosphorous 3.8 mg/dl (2.5-4.5)
[2020-07-18 10:42] LABS: ABG Base Excess 4.3 mmol/L (-2.4-2.3); ABG HCO3 27.3 mmhg (22.0-26.0); ABG Oxygen Saturation 93 % (90-100); ABG PCO2 35.2 mmhg (35.0-45.0); ABG PH 7.51 mmol/L (7.35-7.45); ABG PO2 62.9 mmhg (80-100); ABG TCO2 28.4 mmhg (23-27)
[2020-07-18 10:47] LABS: Oxygen 50% %; PEEP 5; Pressure Support 10; Source L FEMORAL
--- NOTE | 2020-07-18 10:56 | HMH.PNCARD ---
Subjective Date: 07/18/20 Time: 10:00 Principal diagnosis: Cardiac arrest Interval history: 75-year-old male presented to the ED yesterday in respiratory distress. Patient is a resident of [facility]. Upon arriving into the emergency room, patient went into cardiac arrest. campus monitor revealed asystole. Cardiac elicitation began and lasting for 16 minutes. campus monitor revealed normal sinus rhythm, left axis deviation, right bundle branch block, abnormal ECG with a heart rate of 93 bpm. BP is stabilizing. Patient had been on a Levophed and norepinephrine drip, those had been DC'd per PCP. Patient will open his eyes. Patient does have tracheostomy in place. [id number] ventilation to the tracheostomy noted. Patient is at 100% on ventilation. Patient does have gastrotomy tube. Patient is a quadriplegic. Patient is a diabetic. Unable to receive much information regarding this patient due to patient being new to [facility]. Patient noted with hyponatremia and hypokalemia. This is being managed by PCP. Benito catheter intact draining dark yellow urine. Vital signs are stable. Echocardiogram revealed EF 35-40% with segmental wall motion abnormality and grade 2 diastolic dysfunction. Mild aortic, mild mitral and tricuspid regurgitation noted patient also noted with a small pericardial effusion. We will continue to monitor. Discussed plan of care with Dr. Ribeiro. No further cardiac testing indicated at this time. Management of diabetes deferred to PCP. Please continue to monitor patient status. Please notify cardiology of any changes in patient status. Patient does need supportive care at this time. Thank you for allowing cardiology to participate in the care of this patient. Echo:Conclusion 1. Mildly enlarged left atrium, normal left ventricular size, mild concentric left ventricular hypertrophy, visually estimated ejection fraction 35 to 40% with segmental wall motion abnormality described above, endocardial surfaces are poorly visualized, repeat study with Definity contrast is recommended. Grade 2 diastolic dysfunction seen without tissue Doppler evidence of raise left atrial pressure. 2. Mild aortic, mild mitral and tricuspid regurgitation. 3. Small pericardial effusion noted. Exam Vital signs and Labs for Last 24 Hours: Temp Pulse Resp BP Pulse Ox 98.9 F 97 H 37 H 133/73 96 07/18/20 08:00 07/18/20 10:00 07/18/20 10:00 07/18/20 10:00 07/18/20 10:00 Laboratory Results - last 24 hr 07/17/20 09:31: Specimen Source L femoral, O2 % 100 ambu, ABG pH 7.40, ABG pCO2 47.2 H, ABG pO2 408.9 H, ABG HCO3 28.3 H, ABG Total CO2 29.7 H, ABG O2 Saturation 100, ABG Base Excess 3.4 H 07/17/20 11:23: WBC 11.8 H, RBC 3.29 L, Hgb 9.1 L, Hct 28.7 L, MCV 87.2, MCH 27.7, MCHC 31.7 L, RDW 15.3, Plt Count 186, MPV 8.4, Neut % (Auto) 89.9 H, Lymph % (Auto) 5.2 L, [place] % (Auto) 4.7, Eos % (Auto) 0.1, Baso % (Auto) 0.1, Neut # (Auto) 10.6 H, Lymph # (Auto) 0.6 L, [place] # (Auto) 0.6, Eos # (Auto) 0.0, Baso # (Auto) 0.0, Total Counted 100, Neutrophils % (Manual) 89 H, Lymphocytes % (Manual) 5 L, Monocytes % (Manual) 5, Eosinophils % (Manual) 1, Platelet Estimate Normal, Hypochromasia 1+ 07/17/20 11:23: Sodium 152 H*, Potassium 4.4, Chloride 116 H, Carbon Dioxide 29, Anion Gap 11.4, BUN 63 H, Creatinine 1.40 H, Estimated Creat Clear 58, Estimated GFR 49 L, Est GFR ( Amer) 60, Glucose 268 H, Calcium 8.4, Total Bilirubin 0.4, AST 55, ALT 51, Alkaline Phosphatase 74, Troponin I 0.13 H, Total Protein 5.1 L, Albumin 2.5 L, Globulin 2.6, Albumin/Globulin Ratio 1.0 L 07/17/20 11:23: Lactate 2.8 H 07/17/20 12:05: Urine Color Yellow, Urine Appearance Clear, Urine pH 6.0, Ur Specific [place] 1.020, Urine Protein 1+, Urine Glucose (UA) Negative, Urine Ketones Negative, Urine Blood 2+, Urine Nitrate Positive, Urine Bilirubin Negative, Urine Urobilinogen 0.2, Ur Leukocyte Esterase Trace, Urine RBC
[2020-07-18 11:49] LABS: POC Glucose,Bedside 166 (70-110)
--- NOTE | 2020-07-18 11:57 | PC.NURSE ---
trach care completed using 1/2 Na and 1/2 hydrogen peroxide solution. Inner cannula cleansed and reinserted. No issues noted.
--- NOTE | 2020-07-18 13:20 | HMH.ACPN2 ---
Internal Medicine - PN: Subj *Date: 07/18/20 *Time: 20:38 Interval history: 75-year-old male patient lying in bed unresponsive. During the night Levophed has been weaned off. Current oxygen saturation 93% on ventilator settings ventilator settings 18/480/40 +5. Exam Vital signs and Labs for Last 24 Hours: Temp Pulse Resp BP Pulse Ox 98.1 F 96 H 24 151/64 H 98 07/18/20 12:00 07/18/20 13:00 07/18/20 13:00 07/18/20 13:00 07/18/20 13:00 Laboratory Results - last 24 hr 07/17/20 14:28: Troponin I 0.62 H 07/17/20 16:00: Troponin I 0.70 H 07/17/20 16:00: Lactate 1.7 07/17/20 16:59: POC Glucose 154 H 07/17/20 19:35: POC Glucose 140 H 07/18/20 05:23: POC Glucose 137 H 07/18/20 05:49: WBC 13.1 H, RBC 3.62 L, Hgb 9.9 L, Hct 30.8 L, MCV 85.2, MCH 27.5, MCHC 32.3, RDW 15.9, Plt Count 175, MPV 8.8, Neut % (Auto) 85.6 H, Lymph % (Auto) 8.9 L, [place] % (Auto) 5.0, Eos % (Auto) 0.4, Baso % (Auto) 0.1, Neut # (Auto) 11.2 H, Lymph # (Auto) 1.2, [place] # (Auto) 0.7, Eos # (Auto) 0.1, Baso # (Auto) 0.0, Total Counted 100, Neutrophils % (Manual) 94 H, Lymphocytes % (Manual) 3 L, Monocytes % (Manual) 3, Platelet Estimate Normal, RBC Morphology Not Reportable, Hypochromasia 1+ 07/18/20 05:49: Sodium 153 H*, Potassium 3.4 L D, Chloride 117 H, Carbon Dioxide 29, Anion Gap 10.4, BUN 56 H, Creatinine 1.30 H, Estimated Creat Clear 52, Estimated GFR 54 L, Est GFR ( Amer) 65, Glucose 133 H D, Calcium 8.5 07/18/20 05:49: Phosphorus 3.8, Magnesium 2.1 07/18/20 07:00: Specimen Source R radial, O2 % 40%, ABG pH 7.52 H, ABG pCO2 31.5 L, ABG pO2 62.0 L, ABG HCO3 25.3, ABG Total CO2 26.2, ABG O2 Saturation 93, ABG Base Excess 2.4 H, Manav Test Unable, Vent Rate 18, Tidal Volume 480, PEEP 5 07/18/20 10:39: Specimen Source L femoral, O2 % 50%, ABG pH 7.51 H, ABG pCO2 35.2, ABG pO2 62.9 L, ABG HCO3 27.3 H, ABG Total CO2 28.4 H, ABG O2 Saturation 93, ABG Base Excess 4.3 H, PEEP 5 07/18/20 11:42: POC Glucose 166 H I & O for Last 24 hours: Intake & Output 07/15/20 07/16/20 07/17/20 07/18/20 23:59 23:59 23:59 23:59 Intake Total 3113 / 3124 273 / 273 Output Total 845 / 945 668 / 668 Balance 2268 / 2179 -395 / -395 Weight 181 lb 8 oz 167 lb 6 oz Microbiology Reports for the Last 24 Hours: Microbiology 07/17/20 12:05 Urine,Catheterized Urine Culture - Preliminary 07/17/20 10:37 Sputum - Endotracheal Tube Aspirate Gram Stain - Final - Constitutional mild distress, chronically ill appearing - *Routine HEENT Exam Head: Present: normocephalic Eye: Present: EOMI ENT: Present: mucous membranes moist - *Routine Neck Exam Present: trachea midline. Absent: tracheal deviation Comments: Tracheostomy in place - *Routine Respiratory Exam Present: patient mechanically ventilated, rales. Absent: accessory muscle use - *Routine Cardiovascular Exam Present: RRR - *Routine Abdominal Exam Present: soft, normoactive bowel sounds. Absent: firm, rigid Comments: PEG tube in place - *Routine Extremities Exam Present: pulses intact. Absent: cyanosis, clubbing, edema - *Routine Skin Exam Present: dry, warm, lesions, wounds. Absent: cyanosis, jaundice Comments: Stage II wound to left buttock with dressing clean/dry/intact Moderate dark area to left heel Bilateral heels elevated Assessment and Plan (1) Respiratory failure Status: Acute Qualifiers: Chronicity: acute Respiratory failure complication: hypoxia Qualified Code(s): J96.01 - Acute respiratory failure with hypoxia Category: Medical Code(s): J96.90 - Respiratory failure, unspecified, unspecified whether with hypoxia or hypercapnia (2) Cardiac arrest Status: Acute Category: Medical Code(s): I46.9 - Cardiac arrest, cause unspecified (3) Hypotension Status: Acute Qualifiers: Hypotension type: unspecified hypotension type Qualified Code(s): I95.9 - Hypotension, unspecified Category: Medical Code(s): I95.9 - Hypotension, un
--- NOTE | 2020-07-18 15:36 | PC.NURSE ---
pt is being suctioned every 2hrs thru his trach
[2020-07-18 16:39] LABS: POC Glucose,Bedside 138 (70-110)
--- NOTE | 2020-07-18 17:00 | PC.NURSE ---
gastric residuals 0mL @ 0800, 1200, and 1600. Tubefeed rate increased to 30mL/hr.
[2020-07-18 21:07] LABS: POC Glucose,Bedside 186 (70-110)
[2020-07-19] VITALS (32 sets, daily range): BP systolic 93–131; BP diastolic 51–71; PULSE 71–92; RESP 16–36; TEMP 37.2–37.7; O2SAT 95–100; BMI 23.3
[2020-07-19 06:07] LABS: POC Glucose,Bedside 142 (70-110)
--- NOTE | 2020-07-19 09:40 | HMH.PULMPN ---
Internal Medicine - PN: Subj *Date: 07/19/20 *Time: 09:40 Interval history: No acute respiratory events overnight Exam - Constitutional Constitutional:: Present: no acute distress, comfortable - HENMT Exam HENMT: Present: normocephalic, atraumatic - Neck Exam Neck:: Present: thyroid normal - Respiratory Exam Respiratory:: Present: bibailar crackels heard - Cardiovascular Exam Cardiac:: Present: S1, S2 - GI Exam GI:: Present: soft - Skin Exam Skin: Present: warm, no rash - Extremities Exam Extremities: Present: no cyanosis, no clubbing, no edema Assessment and Plan (1) Respiratory failure Status: Acute Qualifiers: Chronicity: acute Respiratory failure complication: hypoxia Qualified Code(s): J96.01 - Acute respiratory failure with hypoxia Category: Medical Code(s): J96.90 - Respiratory failure, unspecified, unspecified whether with hypoxia or hypercapnia (2) Cardiac arrest Status: Acute Category: Medical Code(s): I46.9 - Cardiac arrest, cause unspecified (3) Hypotension Status: Acute Qualifiers: Hypotension type: unspecified hypotension type Qualified Code(s): I95.9 - Hypotension, unspecified Category: Medical Code(s): I95.9 - Hypotension, unspecified (4) Hypernatremia Status: Acute Category: Medical Code(s): E87.0 - Hyperosmolality and hypernatremia (5) CHF (congestive heart failure) Status: Acute Qualifiers: Heart failure type: combined systolic and diastolic Heart failure chronicity: acute on chronic Qualified Code(s): I50.43 - Acute on chronic combined systolic (congestive) and diastolic (congestive) heart failure Category: Medical Code(s): I50.9 - Heart failure, unspecified (6) A-fib Status: Acute Qualifiers: Atrial fibrillation type: longstanding persistent Qualified Code(s): I48.11 - Longstanding persistent atrial fibrillation Category: Medical Code(s): I48.91 - Unspecified atrial fibrillation (7) PVD (peripheral vascular disease) Status: Acute Category: Medical Code(s): I73.9 - Peripheral vascular disease, unspecified (8) Hypothyroidism (acquired) Status: Acute Category: Medical Code(s): E03.9 - Hypothyroidism, unspecified (9) Diabetes 1.5, managed as type 1 Status: Acute Category: Medical Code(s): E13.9 - Other specified diabetes mellitus without complications (10) Seizure Status: Acute Category: Medical Code(s): R56.9 - Unspecified convulsions (11) Paraplegia Status: Acute Category: Medical Code(s): G82.20 - Paraplegia, unspecified (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 Status: Acute Category: Medical Code(s): Z93.0 - Tracheostomy status (13) Feeding by G-tube Status: Acute Category: Medical Code(s): Z93.1 - Gastrostomy status (14) UTI (urinary tract infection) due to urinary indwelling Benito catheter Status: Acute Category: Medical Code(s): T83.511A - Infection and inflammatory reaction due to indwelling urethral catheter, initial encounter; N39.0 - Urinary tract infection, site not specified - Assessment and plan all Dx Assessment and Plan for all problems:: # Acute on chronic respiratory failure hypoxia needing mechanical ventilation: #Community-acquired pneumonia: 75-year-old with MH (as per chart review) of atrial fibrillation, CAD, PVD, CHF, not on any inhaler therapy as per his home medications chronic tracheostomy tube in place presented with PEA with a rhythm of asystole status post ROSC after 16 minutes. Patient initiated on epinephrine drip however wean. CTA - No evidence of PE but showed evidence of airspace disease. Patient respiratory status continued to improve, successfully passed a spontaneous breathing trial. Mag and Phos within normal limits Plan -Continue current SBT at 5/5 @ 35% FiO2 26 we will will wean to trach collar -Duo Nebs every 6 scheduled -Continue treatment for community-acquired pneumonia for total of 5 days -VAP bundle -GI
--- NOTE | 2020-07-19 10:43 | PC.NURSE ---
Pt has a chronic trach in place, currently on vent. pt has peg tube in place with tube feeds going.
--- NOTE | 2020-07-19 11:33 | PC.NURSE ---
Pt placed on trach collar at 10:45. Pt's sats have stayed above 96% on 8L 35%.
[2020-07-19 14:01] LABS: POC Glucose,Bedside 237 (70-110)
--- NOTE | 2020-07-19 16:17 | HMH.ACPN2 ---
Internal Medicine - PN: Subj *Date: 07/19/20 *Time: 09:00 Interval history: pt on breathing trial will open eyes when spoken to Exam Vital signs and Labs for Last 24 Hours: Temp Pulse Resp BP Pulse Ox 99.3 F 85 18 117/57 L 99 07/19/20 16:00 07/19/20 16:00 07/19/20 16:00 07/19/20 16:00 07/19/20 16:00 Laboratory Results - last 24 hr 07/17/20 11:23: Lactate 2.8 H 07/18/20 16:32: POC Glucose 138 H 07/18/20 20:58: POC Glucose 186 H 07/19/20 05:58: POC Glucose 142 H 07/19/20 12:38: POC Glucose 237 H I & O for Last 24 hours: Intake & Output 07/17/20 07/18/20 07/19/20 07/20/20 11:59 11:59 11:59 11:59 Intake Total 3376 / 3606 4362 / 4506 568 / 568 Output Total 1440 / 1487 1205 / 1248 172 / 172 Balance 1936 / 2119 3157 / 3258 396 / 396 Weight 200 lb 167 lb 8.821 oz 167 lb Microbiology Reports for the Last 24 Hours: Microbiology 07/17/20 11:23 Blood Blood Culture - Preliminary NO GROWTH AFTER 48 HOURS 07/17/20 10:37 Sputum - Endotracheal Tube Aspirate Gram Stain - Final 07/17/20 10:37 Sputum - Endotracheal Tube Aspirate Sputum Culture - Preliminary Gram Negative Rods 07/17/20 12:05 Urine,Catheterized Urine Culture - Preliminary Gram Negative Rods Gram Negative Rods#2 07/17/20 11:23 Blood Blood Culture - Preliminary - Constitutional no acute distress, chronically ill appearing - *Routine HEENT Exam Head: Present: normocephalic Eye: Present: PERRL ENT: Present: mucous membranes moist - *Routine Neck Exam Present: supple. Absent: lymphadenopathy Comments: trach stoma et tube present - *Routine Respiratory Exam Present: decreased breath sounds, rhonchi - *Routine Cardiovascular Exam Present: RRR - *Routine Abdominal Exam Present: soft, normoactive bowel sounds. Absent: tenderness - *Routine Extremities Exam Present: normal capillary refill. Absent: cyanosis, clubbing, edema - *Routine Skin Exam Present: warm, wounds. Absent: rash Comments: left heel purple stage 2 to both buttocks - *Routine Neurological Exam Present: alert - Routine Psychiatric Exam Present: unable to assess Assessment and Plan (1) Respiratory failure Status: Acute Qualifiers: Chronicity: acute Respiratory failure complication: hypoxia Qualified Code(s): J96.01 - Acute respiratory failure with hypoxia Category: Medical Code(s): J96.90 - Respiratory failure, unspecified, unspecified whether with hypoxia or hypercapnia (2) Cardiac arrest Status: Acute Category: Medical Code(s): I46.9 - Cardiac arrest, cause unspecified (3) Hypotension Status: Acute Qualifiers: Hypotension type: unspecified hypotension type Qualified Code(s): I95.9 - Hypotension, unspecified Category: Medical Code(s): I95.9 - Hypotension, unspecified (4) Hypernatremia Status: Acute Category: Medical Code(s): E87.0 - Hyperosmolality and hypernatremia (5) CHF (congestive heart failure) Status: Acute Qualifiers: Heart failure type: combined systolic and diastolic Heart failure chronicity: acute on chronic Qualified Code(s): I50.43 - Acute on chronic combined systolic (congestive) and diastolic (congestive) heart failure Category: Medical Code(s): I50.9 - Heart failure, unspecified (6) A-fib Status: Acute Qualifiers: Atrial fibrillation type: longstanding persistent Qualified Code(s): I48.11 - Longstanding persistent atrial fibrillation Category: Medical Code(s): I48.91 - Unspecified atrial fibrillation (7) PVD (peripheral vascular disease) Status: Acute Category: Medical Code(s): I73.9 - Peripheral vascular disease, unspecified (8) Hypothyroidism (acquired) Status: Acute Category: Medical Code(s): E03.9 - Hypothyroidism, unspecified (9) Diabetes 1.5, managed as type 1 Status: Acute
[2020-07-19 16:44] LABS: POC Glucose,Bedside 148 (70-110)
--- NOTE | 2020-07-19 19:35 | PC.NURSE ---
pt has remained stable this shift. he is able to pull his arm and hands away when attempting to assess pt or perform a fsbs. pt lung sounds are clear with occasional rhonchi that clears with cough and suction. bowel sounds are active in all quads. no changes in skin assessment since last assessment.
[2020-07-19 20:25] LABS: POC Glucose,Bedside 201 (70-110)
[2020-07-20] VITALS (16 sets, daily range): BP systolic 87–140; BP diastolic 48–73; PULSE 70–106; RESP 18–22; TEMP 36.7–38.4; O2SAT 88–100
--- NOTE | 2020-07-20 05:10 | PC.NURSE ---
shift summary patient has remained on trach collar throughout shift with sats maintaining greater than 92%, occasional episodes of increased secretions requiring tracheal suctioning due to o2 sats dropping below 86% and respiratory rate increasing to greater than 45. sats and respiratory rate improves and returns to normal after suctioning. have tracheal suctioned twice three times this shift. breath sounds remain course throughout. spontaneous cough, but unable to clear from trach. hose tester has shown sr. patient grimaces and withdrawals to soft tactile stimulation. smyth to gravity clear yellow urine. peg tube with osmolite infusing at goal rate of 69 ml/hr.
[2020-07-20 05:31] LABS: POC Glucose,Bedside 142 (70-110)
[2020-07-20 06:51] LABS: Basophils % 0.1 % (0.1-2.0); Eosinophils # 0.2 K/mm3 (0.0-0.4); Eosinophils % 1.4 % (0.1-12.0); Hematocrit 29.3 % (42.0-52.0); Hemoglobin 9.3 g/dL (14.1-18.0); Lymphocytes # 1.1 K/mm3 (0.7-4.5); Lymphocytes % 9.1 % (10-50); Mean Corpuscular HGB Conc 31.6 g/dL (31.8-35.4); Mean Corpuscular Hemoglobin 27.2 pg (27.0-31.2); Mean Corpuscular Volume 86.3 fl (80-94); Mean Platelet Volume 9.1 fl (7.4-10.4); Monocytes # 0.5 K/mm3 (0.1-1.0); Neutrophils # 10.4 K/mm3 (1.8-7.8); Neutrophils % 85.4 % (37.0-80.0); Platelet Count 154 K/mm3 (142-424); Red Cell Distribution Width 15.8 % (11.5-17.5); White Blood Count 12.2 K/mm3 (4.8-10.8)
[2020-07-20 06:52] LABS: MANUAL DIFFERENTIAL MANUAL DIFFERENTIAL (MANUAL DIFF)
[2020-07-20 06:54] LABS: Anion Gap 10.1 mEq/L (5-15); Blood Urea Nitrogen 31 mg/dl (9-20); Calcium 7.9 mg/dl (8.4-10.2); Carbon Dioxide 27 mmol/L (22.0-30.0); Chloride 111 mmol/L (98-107); Creatinine Clearance Estimated 67 mL/min (50-200); Estimated Glomerular Filt Rate 73 ml/min (>60); GFR (African American) 88 ML/MIN (>60); Glucose 147 mg/dl (74-100); Potassium 4.1 mmoL/L (3.5-5.1); Sodium 144 mmol/L (136-145)
[2020-07-20 08:16] LABS: Lymphocytes % 11 % (10-50); Monocytes % 5 % (2-9); Neutrophils % 84 % (42-76); Platelet Estimate Normal; Total Cells Counted 100
[2020-07-20 08:17] LABS: Hypochromasia 1+
--- NOTE | 2020-07-20 08:56 | HMH.PULMPN ---
Internal Medicine - PN: Subj *Date: 07/20/20 *Time: 09:52 Interval history: No acute respiratory events overnight. Patient also recommends continued to improve Exam - Constitutional Constitutional:: Present: comfortable - HENMT Exam HENMT: Present: atraumatic - Eye Exam Eyes:: Present: eyelids normal - Neck Exam Neck:: Present: normal visual inspection - Respiratory Exam Respiratory:: Present: no respiratory distress, normal respiratory effort, crackles. Absent: accessory muscle use - Cardiovascular Exam Cardiac:: Present: S1, S2 - GI Exam GI:: Present: soft - Skin Exam Skin: Present: warm - Extremities Exam Extremities: Present: no cyanosis, no clubbing Assessment and Plan (1) Respiratory failure Status: Acute Qualifiers: Chronicity: acute Respiratory failure complication: hypoxia Qualified Code(s): J96.01 - Acute respiratory failure with hypoxia Category: Medical Code(s): J96.90 - Respiratory failure, unspecified, unspecified whether with hypoxia or hypercapnia (2) Cardiac arrest Status: Acute Category: Medical Code(s): I46.9 - Cardiac arrest, cause unspecified (3) Hypotension Status: Acute Qualifiers: Hypotension type: unspecified hypotension type Qualified Code(s): I95.9 - Hypotension, unspecified Category: Medical Code(s): I95.9 - Hypotension, unspecified (4) Hypernatremia Status: Acute Category: Medical Code(s): E87.0 - Hyperosmolality and hypernatremia (5) CHF (congestive heart failure) Status: Acute Qualifiers: Heart failure type: combined systolic and diastolic Heart failure chronicity: acute on chronic Qualified Code(s): I50.43 - Acute on chronic combined systolic (congestive) and diastolic (congestive) heart failure Category: Medical Code(s): I50.9 - Heart failure, unspecified (6) A-fib Status: Acute Qualifiers: Atrial fibrillation type: longstanding persistent Qualified Code(s): I48.11 - Longstanding persistent atrial fibrillation Category: Medical Code(s): I48.91 - Unspecified atrial fibrillation (7) PVD (peripheral vascular disease) Status: Acute Category: Medical Code(s): I73.9 - Peripheral vascular disease, unspecified (8) Hypothyroidism (acquired) Status: Acute Category: Medical Code(s): E03.9 - Hypothyroidism, unspecified (9) Diabetes 1.5, managed as type 1 Status: Acute Category: Medical Code(s): E13.9 - Other specified diabetes mellitus without complications (10) Seizure Status: Acute Category: Medical Code(s): R56.9 - Unspecified convulsions (11) Paraplegia Status: Acute Category: Medical Code(s): G82.20 - Paraplegia, unspecified (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 Status: Acute Category: Medical Code(s): Z93.0 - Tracheostomy status (13) Feeding by G-tube Status: Acute Category: Medical Code(s): Z93.1 - Gastrostomy status (14) UTI (urinary tract infection) due to urinary indwelling Benito catheter Status: Acute Category: Medical Code(s): T83.511A - Infection and inflammatory reaction due to indwelling urethral catheter, initial encounter; N39.0 - Urinary tract infection, site not specified - Assessment and plan all Dx Assessment and Plan for all problems:: # Acute on chronic respiratory failure hypoxia needing mechanical ventilation: #Pneumonia: 75-year-old with MH (as per chart review) of atrial fibrillation, CAD, PVD, CHF, not on any inhaler therapy as per his home medications chronic tracheostomy tube in place presented with PEA with a rhythm of asystole status post ROSC after 16 minutes. Patient initiated on epinephrine drip however wean. CTA - No evidence of PE but showed evidence of airspace disease. Patient respiratory status continued to improve, successfully passed a spontaneous breathing trial and eventually weaned to trach collar within 48 hours of admission. Patient was initiated on ertapenem for possible urinary tract infection
--- NOTE | 2020-07-20 09:26 | HMH.ACPN2 ---
Internal Medicine - PN: Subj *Date: 07/20/20 *Time: 08:10 Interval history: pt laying in bed Exam Vital signs and Labs for Last 24 Hours: Temp Pulse Resp BP Pulse Ox 99 F 96 H 20 139/61 93 L 07/20/20 04:00 07/20/20 06:50 07/20/20 06:00 07/20/20 06:00 07/20/20 06:50 Laboratory Results - last 24 hr 07/17/20 11:23: Lactate 2.8 H 07/19/20 12:38: POC Glucose 237 H 07/19/20 16:36: POC Glucose 148 H 07/19/20 20:18: POC Glucose 201 H 07/20/20 05:23: POC Glucose 142 H 07/20/20 05:35: WBC 12.2 H, RBC 3.40 L, Hgb 9.3 L, Hct 29.3 L, MCV 86.3, MCH 27.2, MCHC 31.6 L, RDW 15.8, Plt Count 154, MPV 9.1, Neut % (Auto) 85.4 H, Lymph % (Auto) 9.1 L, [place] % (Auto) 4.0, Eos % (Auto) 1.4, Baso % (Auto) 0.1, Neut # (Auto) 10.4 H, Lymph # (Auto) 1.1, [place] # (Auto) 0.5, Eos # (Auto) 0.2, Baso # (Auto) 0.0, Total Counted 100, Neutrophils % (Manual) 84 H, Lymphocytes % (Manual) 11, Monocytes % (Manual) 5, Platelet Estimate Normal, Hypochromasia 1+ 07/20/20 05:35: Sodium 144, Potassium 4.1 D, Chloride 111 H, Carbon Dioxide 27, Anion Gap 10.1, BUN 31 H D, Creatinine 1.00 D, Estimated Creat Clear 67, Estimated GFR 73, Est GFR ( Amer) 88 D, Glucose 147 H, Calcium 7.9 L I & O for Last 24 hours: Intake & Output 07/17/20 07/18/20 07/19/20 07/20/20 11:59 11:59 11:59 11:59 Intake Total 3376 / 3606 4362 / 4506 3524 / 3524 Output Total 1440 / 1487 1205 / 1248 347 / 347 Balance 1935 / 2118 3157 / 3258 3177 / 3177 Weight 200 lb 167 lb 8.821 oz 167 lb Microbiology Reports for the Last 24 Hours: Microbiology 07/17/20 10:37 Sputum - Endotracheal Tube Aspirate Gram Stain - Final 07/17/20 10:37 Sputum - Endotracheal Tube Aspirate Sputum Culture - Final Proteus mirabilis 07/17/20 11:23 Blood Blood Culture - Preliminary NO GROWTH AFTER 48 HOURS 07/17/20 12:05 Urine,Catheterized Urine Culture - Preliminary Gram Negative Rods Gram Negative Rods#2 - Constitutional no acute distress, chronically ill appearing - *Routine HEENT Exam Head: Present: normocephalic Eye: Present: PERRL ENT: Present: mucous membranes moist - *Routine Neck Exam Present: supple. Absent: lymphadenopathy Comments: trache - *Routine Respiratory Exam Present: decreased breath sounds, rhonchi - *Routine Cardiovascular Exam Present: RRR - *Routine Abdominal Exam Present: soft, normoactive bowel sounds. Absent: tenderness Comments: peg tube in place - *Routine Extremities Exam Absent: cyanosis, clubbing, edema - *Routine Skin Exam Present: warm, wounds. Absent: rash Comments: stage two to both buttocks left heel purple area - *Routine Neurological Exam Present: alert - Routine Psychiatric Exam Present: unable to assess Assessment and Plan (1) Respiratory failure Status: Acute Qualifiers: Chronicity: acute Respiratory failure complication: hypoxia Qualified Code(s): J96.01 - Acute respiratory failure with hypoxia Category: Medical Code(s): J96.90 - Respiratory failure, unspecified, unspecified whether with hypoxia or hypercapnia (2) Cardiac arrest Status: Acute Category: Medical Code(s): I46.9 - Cardiac arrest, cause unspecified (3) Hypotension Status: Acute Qualifiers: Hypotension type: unspecified hypotension type Qualified Code(s): I95.9 - Hypotension, unspecified Category: Medical Code(s): I95.9 - Hypotension, unspecified (4) Hypernatremia Status: Acute Category: Medical Code(s): E87.0 - Hyperosmolality and hypernatremia (5) CHF (congestive heart failure) Status: Acute Qualifiers: Heart failure type: combined systolic and diastolic Heart failure chronicity: acute on chronic Qualified Code(s): I50.43 - Acute on chronic combined systolic (congestive) and diastolic (congestive) heart failure Category: Medical Code(s): I50.9
[2020-07-20 12:13] LABS: POC Glucose,Bedside 156 (70-110)
--- NOTE | 2020-07-20 13:11 | XR_ITS ---
PROCEDURE: XR CHEST PORTABLE CLINICAL HISTORY: sob COMPARISON: CR XR CHEST PORTABLE from 07/17/2020 CR XR CHEST PORTABLE from 07/17/[address] ANGIO CHEST from 07/17/2020 CR XR CHEST PORTABLE from 07/18/2020 FINDINGS: Mild cardiomegaly without failure. There has been a prior median sternotomy. Tracheostomy tube and right IJ central venous line remains in place. Central venous line tip is in the region the right atrium. Airspace disease is present in both lower lobes and may be due to atelectasis or infiltrate. The atelectatic changes in the right lower lobe is shown some improvement. IMPRESSION: Bibasilar airspace disease with some improvement in the right basilar atelectasis. Dictated by: Manav Chan MD 07/20/2020 15:53 Manav Chan MD in [facility] 07/20/2020 15:53
[2020-07-20 20:32] LABS: POC Glucose,Bedside 152 (70-110)
--- NOTE | 2020-07-20 20:35 | PC.NURSE ---
pt has appeared to rest comfortably this shift. lungs contain scattered rhonchi, peg tube has no drainage noted. [place] sputum draining from trach. pt on 28% trach collar. sentral ine in place. dressing noted to coccyx ulcer. no dressing to heel ulcer. heels floated on pillow. pt responsive to stimuli. APS customer operations representative at bedside this afternoon with [facility] addiction social worker. pt tolerating tube feeds well, no residual noted all shift.
--- NOTE | 2020-07-20 20:38 | PC.NURSE ---
0930 0ml residual peg tube 1650 0ml residual noted.
[2020-07-20 20:56] LABS: POC Glucose,Bedside 114 (70-110)
--- NOTE | 2020-07-20 21:00 | PC.NURSE ---
pt had no needs,restock gloves in room tech already did snacks. Jose
--- NOTE | 2020-07-20 23:03 | PC.NURSE ---
He is unable to speak. His HOB is elevated. He is receiving oral care q 2 hours and PRN. He is receiving oxygen via a trach collar. He requires frequent suctioning r/t trach secretions. Secretions are thick, white and pink tinged at times. 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 He is being turned and repositioned q 2 hours and PRN. Residual at 2000 was 15. Continues with osmolite tube feedings at 69mL/hr. Continues in seizure precautions. He was incontinent of bowel. Per-care provided per staff. Glucose was 114 at bedtime.
[2020-07-21] VITALS (13 sets, daily range): BP systolic 87–155; BP diastolic 49–72; PULSE 70–90; RESP 11–48; TEMP 36.3–36.9; O2SAT 93–100; BMI 24.1
[2020-07-21 05:25] LABS: POC Glucose,Bedside 100 (70-110)
--- NOTE | 2020-07-21 05:33 | PC.NURSE ---
pt has no needs. Ice water,trash,dirty linen and room straighten done by other tech barby.Jose
[2020-07-21 06:03] LABS: Basophils % 0.1 % (0.1-2.0); Eosinophils # 0.2 K/mm3 (0.0-0.4); Eosinophils % 1.6 % (0.1-12.0); Hemoglobin 9.1 g/dL (14.1-18.0); Lymphocytes % 9.5 % (10-50); Mean Corpuscular HGB Conc 32.3 g/dL (31.8-35.4); Mean Corpuscular Hemoglobin 27.6 pg (27.0-31.2); Mean Corpuscular Volume 85.7 fl (80-94); Mean Platelet Volume 8.9 fl (7.4-10.4); Monocytes # 0.4 K/mm3 (0.1-1.0); Monocytes % 3.8 % (1.7-9.3); Neutrophils # 9.3 K/mm3 (1.8-7.8); Platelet Count 154 K/mm3 (142-424); Red Cell Distribution Width 15.8 % (11.5-17.5); White Blood Count 10.9 K/mm3 (4.8-10.8)
[2020-07-21 06:05] LABS: Hematocrit 28.2 % (42.0-52.0)
[2020-07-21 06:06] LABS: MANUAL DIFFERENTIAL MANUAL DIFFERENTIAL (MANUAL DIFF)
[2020-07-21 06:19] LABS: Eosinophils % 1 % (0-3); Lymphocytes % 11 % (10-50); Monocytes % 1 % (2-9); Neutrophils % 82 % (42-76); Platelet Estimate Normal; RBC Morphology Normal; Total Cells Counted 100
[2020-07-21 06:26] LABS: Anion Gap 9.1 mEq/L (5-15); Blood Urea Nitrogen 26 mg/dl (9-20); Carbon Dioxide 27 mmol/L (22.0-30.0); Chloride 108 mmol/L (98-107); Creatinine Clearance Estimated 70 mL/min (50-200); Estimated Glomerular Filt Rate 82 ml/min (>60); GFR (African American) 99 ML/MIN (>60); Glucose 135 mg/dl (74-100); Potassium 4.1 mmoL/L (3.5-5.1); Sodium 140 mmol/L (136-145)
[2020-07-21 11:15] LABS: POC Glucose,Bedside 160 (70-110)
--- NOTE | 2020-07-21 11:21 | HMH.ACPN ---
Internal Medicine - PN: Subj *Date: 07/21/20 *Time: 11:22 Exam Vital signs and Labs for Last 24 Hours: Temp Pulse Resp BP Pulse Ox 97.7 F 77 40 H 92/56 L 96 07/21/20 08:00 07/21/20 10:00 07/21/20 10:00 07/21/20 10:00 07/21/20 10:00 Laboratory Results - last 24 hr 07/20/20 11:48: POC Glucose 156 H 07/20/20 16:37: POC Glucose 152 H 07/20/20 20:36: POC Glucose 114 H 07/21/20 05:09: POC Glucose 100 07/21/20 05:10: WBC 10.9 H, RBC 3.30 L, Hgb 9.1 L, Hct 28.2 L, MCV 85.7, MCH 27.6, MCHC 32.3, RDW 15.8, Plt Count 154, MPV 8.9, Neut % (Auto) 85.0 H, Lymph % (Auto) 9.5 L, [place] % (Auto) 3.8, Eos % (Auto) 1.6, Baso % (Auto) 0.1, Neut # (Auto) 9.3 H, Lymph # (Auto) 1.0, [place] # (Auto) 0.4, Eos # (Auto) 0.2, Baso # (Auto) 0.0, Total Counted 100, Neutrophils % (Manual) 82 H, Band Neutrophils % 5.0, Lymphocytes % (Manual) 11, Monocytes % (Manual) 1 L, Eosinophils % (Manual) 1, Platelet Estimate Normal, RBC Morphology Normal 07/21/20 05:10: Sodium 140, Potassium 4.1, Chloride 108 H, Carbon Dioxide 27, Anion Gap 9.1, BUN 26 H, Creatinine 0.90, Estimated Creat Clear 70, Estimated GFR 82, Est GFR ( Amer) 99, Glucose 135 H, Calcium 8.0 L 07/21/20 11:01: POC Glucose 160 H I & O for Last 24 hours: Intake & Output 07/18/20 07/19/20 07/20/20 07/21/20 23:59 23:59 23:59 23:59 Intake Total 2229 / 2489 3630 / 3630 4364 / 4364 1111 / 1111 Output Total 1148 / 1178 999 / 999 1350 / 1350 Balance 1081 / 1311 2631 / 2631 4364 / 3664 -239 / -239 Weight 76 kg 75.75 kg 78.188 kg Microbiology Reports for the Last 24 Hours: Microbiology 07/17/20 12:05 Urine,Catheterized Urine Culture - Final Klebsiella pneumoniae Pseudomonas aeruginosa 07/17/20 11:23 Blood Blood Culture - Preliminary Staphylococcus pettenkoferi 07/17/20 10:37 Sputum - Endotracheal Tube Aspirate Gram Stain - Final 07/17/20 10:37 Sputum - Endotracheal Tube Aspirate Sputum Culture - Final Proteus mirabilis Assessment and Plan (1) Respiratory failure Status: Acute Qualifiers: Chronicity: acute Respiratory failure complication: hypoxia Qualified Code(s): J96.01 - Acute respiratory failure with hypoxia Category: Medical Code(s): J96.90 - Respiratory failure, unspecified, unspecified whether with hypoxia or hypercapnia (2) Cardiac arrest Status: Acute Category: Medical Code(s): I46.9 - Cardiac arrest, cause unspecified (3) Hypotension Status: Acute Qualifiers: Hypotension type: unspecified hypotension type Qualified Code(s): I95.9 - Hypotension, unspecified Category: Medical Code(s): I95.9 - Hypotension, unspecified (4) Hypernatremia Status: Acute Category: Medical Code(s): E87.0 - Hyperosmolality and hypernatremia (5) CHF (congestive heart failure) Status: Acute Qualifiers: Heart failure type: combined systolic and diastolic Heart failure chronicity: acute on chronic Qualified Code(s): I50.43 - Acute on chronic combined systolic (congestive) and diastolic (congestive) heart failure Category: Medical Code(s): I50.9 - Heart failure, unspecified (6) A-fib Status: Acute Qualifiers: Atrial fibrillation type: longstanding persistent Qualified Code(s): I48.11 - Longstanding persistent atrial fibrillation Category: Medical Code(s): I48.91 - Unspecified atrial fibrillation (7) PVD (peripheral vascular disease) Status: Acute Category: Medical Code(s): I73.9 - Peripheral vascular disease, unspecified (8) Hypothyroidism (acquired) Status: Acute Category: Medical Code(s): E03.9 - Hypothyroidism, unspecified (9) Diabetes 1.5, managed as type 1 Status: Acute Category: Medical Code(s): E13.9 - Other specified diabetes mellitus without complications (10) Seizure Status: Acute Category: Medical Code(s): R56.9 - Unspecified convulsions
--- NOTE | 2020-07-21 14:28 | HMH.ACPN2 ---
Internal Medicine - PN: Subj *Date: 07/21/20 *Time: 08:30 Interval history: pt alert and opens eyes Exam Vital signs and Labs for Last 24 Hours: Temp Pulse Resp BP Pulse Ox 98.5 F 76 36 H 100/53 L 99 07/21/20 12:00 07/21/20 12:00 07/21/20 12:00 07/21/20 12:00 07/21/20 12:00 Laboratory Results - last 24 hr 07/20/20 16:37: POC Glucose 152 H 07/20/20 20:36: POC Glucose 114 H 07/21/20 05:09: POC Glucose 100 07/21/20 05:10: WBC 10.9 H, RBC 3.30 L, Hgb 9.1 L, Hct 28.2 L, MCV 85.7, MCH 27.6, MCHC 32.3, RDW 15.8, Plt Count 154, MPV 8.9, Neut % (Auto) 85.0 H, Lymph % (Auto) 9.5 L, [place] % (Auto) 3.8, Eos % (Auto) 1.6, Baso % (Auto) 0.1, Neut # (Auto) 9.3 H, Lymph # (Auto) 1.0, [place] # (Auto) 0.4, Eos # (Auto) 0.2, Baso # (Auto) 0.0, Total Counted 100, Neutrophils % (Manual) 82 H, Band Neutrophils % 5.0, Lymphocytes % (Manual) 11, Monocytes % (Manual) 1 L, Eosinophils % (Manual) 1, Platelet Estimate Normal, RBC Morphology Normal 07/21/20 05:10: Sodium 140, Potassium 4.1, Chloride 108 H, Carbon Dioxide 27, Anion Gap 9.1, BUN 26 H, Creatinine 0.90, Estimated Creat Clear 70, Estimated GFR 82, Est GFR ( Amer) 99, Glucose 135 H, Calcium 8.0 L 07/21/20 11:01: POC Glucose 160 H I & O for Last 24 hours: Intake & Output 07/19/20 07/20/20 07/21/20 07/22/20 11:59 11:59 11:59 11:59 Intake Total 4362 / 4506 3754 / 3754 2955 / 2955 Output Total 1205 / 1248 347 / 347 1350 / 1350 Balance 3157 / 3258 3407 / 3407 1605 / 1605 Weight 167 lb 172 lb 6 oz Microbiology Reports for the Last 24 Hours: Microbiology 07/17/20 12:05 Urine,Catheterized Urine Culture - Final Klebsiella pneumoniae Pseudomonas aeruginosa 07/17/20 11:23 Blood Blood Culture - Preliminary Staphylococcus pettenkoferi - Constitutional no acute distress, chronically ill appearing - *Routine HEENT Exam Head: Present: normocephalic Eye: Present: PERRL ENT: Present: mucous membranes moist - *Routine Neck Exam Present: supple. Absent: lymphadenopathy Comments: trach midline - *Routine Respiratory Exam Present: decreased breath sounds, rhonchi - *Routine Cardiovascular Exam Present: RRR - *Routine Abdominal Exam Present: soft, normoactive bowel sounds. Absent: tenderness - *Routine Extremities Exam Present: normal capillary refill. Absent: cyanosis, clubbing, edema - *Routine Skin Exam Present: warm, wounds. Absent: rash Comments: stage 2 to crystal buttocks purple area to 2/3 of bottom of foot - *Routine Neurological Exam Present: alert - Routine Psychiatric Exam Present: normal affect Assessment and Plan (1) Respiratory failure Status: Acute Qualifiers: Chronicity: acute Respiratory failure complication: hypoxia Qualified Code(s): J96.01 - Acute respiratory failure with hypoxia Category: Medical Code(s): J96.90 - Respiratory failure, unspecified, unspecified whether with hypoxia or hypercapnia (2) Cardiac arrest Status: Acute Category: Medical Code(s): I46.9 - Cardiac arrest, cause unspecified (3) Hypotension Status: Acute Qualifiers: Hypotension type: unspecified hypotension type Qualified Code(s): I95.9 - Hypotension, unspecified Category: Medical Code(s): I95.9 - Hypotension, unspecified (4) Hypernatremia Status: Acute Category: Medical Code(s): E87.0 - Hyperosmolality and hypernatremia (5) CHF (congestive heart failure) Status: Acute Qualifiers: Heart failure type: combined systolic and diastolic Heart failure chronicity: acute on chronic Qualified Code(s): I50.43 - Acute on chronic combined systolic (congestive) and diastolic (congestive) heart failure Category: Medical Code(s): I50.9 - Heart failure, unspecified (6) A-fib Status: Acute Qualifiers: Atrial fibrillation type: longstanding persistent Qualified Code(s): I48.11 - Longstandi
[2020-07-21 16:54] LABS: POC Glucose,Bedside 148 (70-110)
[2020-07-21 20:45] LABS: POC Glucose,Bedside 167 (70-110)
--- NOTE | 2020-07-21 23:10 | PC.NURSE ---
He was noted to be diaphoretic at shift change. Rectal temp was checked and he was afebrile. Covers were removed and he is no longer diaphoretic. His HOB is elevated. He continues in seizure precautions and contact precautions. He continues with osmolite tube feedings. F/c is patent and draining yellow, clear urine. He is being turned and repositioned q 2 hours and PRN. Heel protectors in place. Oral care provided q 2 hours. He requires frequent trach suctioning for thick, white secretions. Trach care provided.
[2020-07-22] VITALS (14 sets, daily range): BP systolic 101–138; BP diastolic 51–93; PULSE 75–86; RESP 18–40; TEMP 36.3–37.2; O2SAT 91–99; BMI 24.4
[2020-07-22 05:11] LABS: POC Glucose,Bedside 178 (70-110)
[2020-07-22 06:26] LABS: Basophils % 0.1 % (0.1-2.0); Eosinophils # 0.1 K/mm3 (0.0-0.4); Eosinophils % 2.1 % (0.1-12.0); Lymphocytes # 0.9 K/mm3 (0.7-4.5); Lymphocytes % 13.3 % (10-50); Mean Corpuscular HGB Conc 32.2 g/dL (31.8-35.4); Mean Corpuscular Hemoglobin 27.5 pg (27.0-31.2); Mean Corpuscular Volume 85.2 fl (80-94); Mean Platelet Volume 8.4 fl (7.4-10.4); Monocytes # 0.3 K/mm3 (0.1-1.0); Monocytes % 4.2 % (1.7-9.3); Neutrophils # 5.5 K/mm3 (1.8-7.8); Neutrophils % 80.2 % (37.0-80.0); Platelet Count 164 K/mm3 (142-424); Red Blood Count 3.29 M/mm3 (4.60-6.20); Red Cell Distribution Width 15.6 % (11.5-17.5); White Blood Count 6.9 K/mm3 (4.8-10.8)
[2020-07-22 06:31] LABS: Hematocrit 28.1 % (42.0-52.0)
[2020-07-22 06:33] LABS: Chloride 107 mmol/L (98-107); Potassium 4.6 mmoL/L (3.5-5.1); Sodium 139 mmol/L (136-145)
[2020-07-22 06:36] LABS: Anion Gap 8.6 mEq/L (5-15); Blood Urea Nitrogen 22 mg/dl (9-20); Calcium 8.1 mg/dl (8.4-10.2); Carbon Dioxide 28 mmol/L (22.0-30.0); Creatinine Clearance Estimated 70 mL/min (50-200); Estimated Glomerular Filt Rate 73 ml/min (>60); GFR (African American) 88 ML/MIN (>60)
[2020-07-22 07:01] LABS: Glucose 181 mg/dl (74-100)
--- NOTE | 2020-07-22 11:28 | HMH.ACPN2 ---
Internal Medicine - PN: Subj *Date: 07/22/20 *Time: 08:00 Interval history: pt more alert today Exam Vital signs and Labs for Last 24 Hours: Temp Pulse Resp BP Pulse Ox 99.0 F 85 40 H 138/93 H 95 07/22/20 07:57 07/22/20 08:00 07/22/20 08:00 07/22/20 08:00 07/22/20 08:00 Laboratory Results - last 24 hr 07/21/20 16:48: POC Glucose 148 H 07/21/20 20:19: POC Glucose 167 H 07/22/20 04:54: POC Glucose 178 H 07/22/20 05:08: WBC 6.9 D, RBC 3.29 L, Hgb 9.0 L, Hct 28.1 L, MCV 85.2, MCH 27.5, MCHC 32.2, RDW 15.6, Plt Count 164, MPV 8.4, Neut % (Auto) 80.2 H, Lymph % (Auto) 13.3, [place] % (Auto) 4.2, Eos % (Auto) 2.1, Baso % (Auto) 0.1, Neut # (Auto) 5.5, Lymph # (Auto) 0.9, [place] # (Auto) 0.3, Eos # (Auto) 0.1, Baso # (Auto) 0.0 07/22/20 05:08: Sodium 139, Potassium 4.6, Chloride 107, Carbon Dioxide 28, Anion Gap 8.6, BUN 22 H, Creatinine 1.00, Estimated Creat Clear 70, Estimated GFR 73, Est GFR ( Amer) 88, Glucose 181 H D, Calcium 8.1 L I & O for Last 24 hours: Intake & Output 07/19/20 07/20/20 07/21/20 07/22/20 11:59 11:59 11:59 11:59 Intake Total 4362 / 4506 3754 / 3754 2955 / 2955 5758 / 5758 Output Total 1205 / 1248 347 / 347 1350 / 1350 3500 / 3500 Balance 3157 / 3258 3407 / 3407 1605 / 1605 2258 / 2258 Weight 167 lb 172 lb 6 oz 174 lb 6 oz - Constitutional no acute distress, chronically ill appearing - *Routine HEENT Exam Head: Present: normocephalic Eye: Present: PERRL ENT: Present: mucous membranes moist - *Routine Neck Exam Present: supple. Absent: lymphadenopathy Comments: tache with o2 - *Routine Respiratory Exam Present: decreased breath sounds, rhonchi - *Routine Cardiovascular Exam Present: RRR - *Routine Abdominal Exam Present: soft, normoactive bowel sounds. Absent: tenderness - *Routine Extremities Exam Present: normal capillary refill. Absent: cyanosis, clubbing, edema - *Routine Skin Exam Present: warm, wounds. Absent: rash Comments: stage 2 to crystal buttocks purple area to left heel - *Routine Neurological Exam Present: alert - Routine Psychiatric Exam Present: unable to assess Assessment and Plan (1) Respiratory failure Status: Acute Qualifiers: Chronicity: acute Respiratory failure complication: hypoxia Qualified Code(s): J96.01 - Acute respiratory failure with hypoxia Category: Medical Code(s): J96.90 - Respiratory failure, unspecified, unspecified whether with hypoxia or hypercapnia (2) Cardiac arrest Status: Acute Category: Medical Code(s): I46.9 - Cardiac arrest, cause unspecified (3) Hypotension Status: Acute Qualifiers: Hypotension type: unspecified hypotension type Qualified Code(s): I95.9 - Hypotension, unspecified Category: Medical Code(s): I95.9 - Hypotension, unspecified (4) Hypernatremia Status: Acute Category: Medical Code(s): E87.0 - Hyperosmolality and hypernatremia (5) CHF (congestive heart failure) Status: Acute Qualifiers: Heart failure type: combined systolic and diastolic Heart failure chronicity: acute on chronic Qualified Code(s): I50.43 - Acute on chronic combined systolic (congestive) and diastolic (congestive) heart failure Category: Medical Code(s): I50.9 - Heart failure, unspecified (6) A-fib Status: Acute Qualifiers: Atrial fibrillation type: longstanding persistent Qualified Code(s): I48.11 - Longstanding persistent atrial fibrillation Category: Medical Code(s): I48.91 - Unspecified atrial fibrillation (7) PVD (peripheral vascular disease) Status: Acute Category: Medical Code(s): I73.9 - Peripheral vascular disease, unspecified (8) Hypothyroidism (acquired) Status: Acute Category: Medical Code(s): E03.9 - Hypothyroidism, unspecified (9) Diabetes 1.5, managed as type 1 Status: Acute Category: Medical Code(s): E13.9 - Other specified diabetes mellitus without complications (10) Seizure Status: Acute
[2020-07-22 11:49] LABS: POC Glucose,Bedside 174 (70-110)
--- NOTE | 2020-07-22 14:25 | PC.NURSE ---
AFTER TRACH CARE PTS SATS DROPPED TO THE HIGH 80S SO I TURNED O2 UP TO 35% AND PTS SATS CAME BACK UP.
--- NOTE | 2020-07-22 15:11 | PC.NURSE ---
I assumed care of patient at approx 1000 from Tian Calhoun RN. He remains in contact precautions for cre/klebsiella. Seizure precautions in place. Some expiratory wheezes noted to lungs. Oxygen is currently on 8L (35% fio2) per trach. Trach care was provided per respiratory therapy today. I provided oral care q2hrs and he was turned q2hrs as well. Heels floated and heel protectors in place. His smyth is draining clear, bright yellow urine to gravity with 1300 mls out. Catheter care and anuel care provided by myself. Tube feed infusing at goal rate of 69 mls/hr. Pt tolerating well. Pegtube site is without drainage or erythema. Residuals have been < 5mls. Stage 2 noted to buttocks. Clean dressing in place. Scab noted to center of chest. Purple area to left heel. Growth noted to left ear. Scattered bruising and +1 generalized edema. Bed locked and in lowest position.
[2020-07-22 16:23] LABS: POC Glucose,Bedside 185 (70-110)
[2020-07-22 20:55] LABS: POC Glucose,Bedside 181 (70-110)
[2020-07-23] VITALS: BP 98/57; PULSE 70; PULSE 77; RESP 32; TEMP 36.5; O2SAT 93
--- NOTE | 2020-07-23 03:45 | PC.NURSE ---
Pt in contact precautions. Trach collar in place. Trach care along with oral care provided this shift. Pt suctioned as needed due to copious amounts of sputum. Scattered wheezing noted to lung merchant this AM. O2 is currently at 5L 28% FiO2. Peg tube clean and without drainage noted. Osmolite 1.2 infusing @ 69 ml/hr goal rate. 230 ml H20 Q4 hrs. Residuals have been no more than 10 ml. Checked Q4. Pt turned Q2 hr. F/C draining to bedside with clear, yellow urine. No BM thus far. Seizure precautions in place. Will continue to monitor.
[2020-07-23 04:00] VITALS: BP 151/89; PULSE 71; PULSE 80; RESP 40; TEMP 36.4; O2SAT 92
[2020-07-23 05:00] VITALS: BMI 25.0
[2020-07-23 05:33] LABS: POC Glucose,Bedside 128 (70-110)
[2020-07-23 06:05] VITALS: PULSE 80; PULSE 90; O2SAT 95
[2020-07-23 06:45] LABS: Basophils % 0.2 % (0.1-2.0); Eosinophils # 0.1 K/mm3 (0.0-0.4); Hemoglobin 9.4 g/dL (14.1-18.0); Lymphocytes # 1.3 K/mm3 (0.7-4.5); Lymphocytes % 18.1 % (10-50); Mean Corpuscular HGB Conc 32.4 g/dL (31.8-35.4); Mean Corpuscular Hemoglobin 27.8 pg (27.0-31.2); Mean Corpuscular Volume 85.8 fl (80-94); Mean Platelet Volume 8.5 fl (7.4-10.4); Monocytes # 0.3 K/mm3 (0.1-1.0); Neutrophils # 5.4 K/mm3 (1.8-7.8); Neutrophils % 75.7 % (37.0-80.0); Platelet Count 193 K/mm3 (142-424); Red Blood Count 3.38 M/mm3 (4.60-6.20); Red Cell Distribution Width 15.6 % (11.5-17.5); White Blood Count 7.2 K/mm3 (4.8-10.8)
[2020-07-23 06:54] LABS: Anion Gap 10.7 mEq/L (5-15); Blood Urea Nitrogen 18 mg/dl (9-20); Calcium 8.3 mg/dl (8.4-10.2); Carbon Dioxide 28 mmol/L (22.0-30.0); Chloride 106 mmol/L (98-107); Creatinine Clearance Estimated 72 mL/min (50-200); Estimated Glomerular Filt Rate 73 ml/min (>60); GFR (African American) 88 ML/MIN (>60); Glucose 122 mg/dl (74-100); Potassium 4.7 mmoL/L (3.5-5.1); Sodium 140 mmol/L (136-145)
[2020-07-23 08:00] VITALS: BP 148/79; PULSE 76; PULSE 91; RESP 24; TEMP 36.6; O2SAT 96
--- NOTE | 2020-07-23 09:08 | XR_ITS ---
PROCEDURE: XR CHEST PORTABLE PICC PLAC CLINICAL HISTORY: Confirm PICC line placement COMPARISON: CR XR CHEST PORTABLE from 07/17/[address] ANGIO CHEST from 07/17/2020 CR XR CHEST PORTABLE from 07/18/2020 CR XR CHEST PORTABLE from 07/20/2020 FINDINGS: Left subclavian PICC line with its tip overlying the SVC is noted. Tracheostomy is noted. Median sternotomy and mediastinal clips are noted. Small bilateral pleural effusions with adjacent compressive atelectasis, worse on the left. Hazy opacities are noted in the right lower zone, marginally worse compared to the prior study. No lobar consolidation or pneumothorax. Cardiomegaly is noted. Central pulmonary vasculature is mildly prominent. Degenerative changes of the visualized thoracic spine. IMPRESSION: Left subclavian PICC line in satisfactory position. Cardiomegaly with mild central pulmonary vascular congestion. Small bilateral pleural effusions with adjacent compressive atelectasis. Status post CABG. Dictated by: Claudette Mckeon 07/23/2020 10:30 Claudette Mckeon in OV 07/23/2020 10:30
--- NOTE | 2020-07-23 09:49 | HMH.PULMPN ---
Internal Medicine - PN: Subj *Date: 07/23/20 *Time: 09:49 Interval history: No acute respiratory vents over the weekend patient continued remained on trach collar 28% FiO2 Exam - Constitutional Constitutional:: Present: no acute distress - HENMT Exam HENMT: Present: normocephalic, atraumatic - Eye Exam Eyes:: Present: eyelids normal - Neck Exam Neck:: Present: thyroid normal - Respiratory Exam Respiratory:: Present: crackles. Absent: wheezing - Cardiovascular Exam Cardiac:: Present: S1, S2 - GI Exam GI:: Present: soft - Skin Exam Skin: Present: warm - Neurological Exam Neurological: Absent: alert, awake - Extremities Exam Extremities: Present: no cyanosis, no clubbing, edema Assessment and Plan (1) Respiratory failure Status: Acute Qualifiers: Chronicity: acute Respiratory failure complication: hypoxia Qualified Code(s): J96.01 - Acute respiratory failure with hypoxia Category: Medical Code(s): J96.90 - Respiratory failure, unspecified, unspecified whether with hypoxia or hypercapnia (2) Cardiac arrest Status: Acute Category: Medical Code(s): I46.9 - Cardiac arrest, cause unspecified (3) Hypotension Status: Acute Qualifiers: Hypotension type: unspecified hypotension type Qualified Code(s): I95.9 - Hypotension, unspecified Category: Medical Code(s): I95.9 - Hypotension, unspecified (4) Hypernatremia Status: Acute Category: Medical Code(s): E87.0 - Hyperosmolality and hypernatremia (5) CHF (congestive heart failure) Status: Acute Qualifiers: Heart failure type: combined systolic and diastolic Heart failure chronicity: acute on chronic Qualified Code(s): I50.43 - Acute on chronic combined systolic (congestive) and diastolic (congestive) heart failure Category: Medical Code(s): I50.9 - Heart failure, unspecified (6) A-fib Status: Acute Qualifiers: Atrial fibrillation type: longstanding persistent Qualified Code(s): I48.11 - Longstanding persistent atrial fibrillation Category: Medical Code(s): I48.91 - Unspecified atrial fibrillation (7) PVD (peripheral vascular disease) Status: Acute Category: Medical Code(s): I73.9 - Peripheral vascular disease, unspecified (8) Hypothyroidism (acquired) Status: Acute Category: Medical Code(s): E03.9 - Hypothyroidism, unspecified (9) Diabetes 1.5, managed as type 1 Status: Acute Category: Medical Code(s): E13.9 - Other specified diabetes mellitus without complications (10) Seizure Status: Acute Category: Medical Code(s): R56.9 - Unspecified convulsions (11) Paraplegia Status: Acute Category: Medical Code(s): G82.20 - Paraplegia, unspecified (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 Patient initiated on epinephrine drip however wean. CTA - No evidence of PE but showed evidence of airspace disease. Patient respiratory status continued to improve, successfully passed a spontaneous breathing trial and eventually weaned to trach collar within 48 hours of admission. Patient was initiated on ertapenem for possible urinary tract infection along azithromycin to cover atypicals and his sputum culture eventually grew Proteus mirabilis resistant to ertapenem. Urine culture positive for Klebsiella and Pseudomonas sensitive to Zosyn. Even though his Proteus mirabilis pneumonia is s
[2020-07-23 10:44] LABS: POC Glucose,Bedside 150 (70-110)
[2020-07-23 12:00] VITALS: BP 143/70; PULSE 75; RESP 26; TEMP 36.7; O2SAT 94
--- NOTE | 2020-07-23 14:23 | HMH.DCSUM ---
General - General Admission date:: 07/17/20 Discharge date: 07/23/20 HPI HPI: this pt was sent from [facility] for resp distress - brought in by ambulance from [facility] for respiratory distress and hypoxia. The patient is unable to give any history. He has a tracheostomy and gastrostomy tube and is reportedly new to [facility]. Found to have low pulse oximetry in the 50s today. He is brought in by ambulance. Initially they had him on 15 L oxygen through his tracheostomy. During transport they called in to the emergency department and reported that his pulse oximetry was in the 60s. They were instructed to begin [id number] ventilations. A right tibia intraosseous catheter was started during transport. Reportedly the family requested that the patient be transferred to the [facility] in [place], but EMS personnel declined to transport him there due to his condition. e patient's clinical information, including history, exam, laboratory and radiology results and ED course. Per hospital procedure, I will write temporary bridge inpatient orders on the patient. Specific orders requested by the admitting physician: Echocardiogram, CT angiogram of chest, cardiology consult, pulmonary consult, admit to stepdown. Chest compressions started, [id number] ventilations through his tracheostomy tube were continued. It was found that his tracheostomy tube balloon was not inflated. This was inflated to improve ventilation and oxygenation. The patient was given several doses of intravenous epinephrine along with bicarbonate. He then went into a wide-complex bizarre rhythm without a pulse and was given calcium for the possibility of hyperkalemia. He then went into wide-complex tachycardia with a pulse and was defibrillated x1. Resultant rhythm was wide-complex irregular tachycardia consistent with atrial fibrillation with aberrancy, fairly quickly the QRS complex narrowed from its bizarre appearance to a more typical bundle branch block. The patient's color improved markedly. Pulse ox on the ventilator was 100% after return of spontaneous circulation. pt admitted to [facility] Hospital Course Hospital Course: Laboratory Tests 07/17/20 07/17/20 07/17/20 09:31 11:23 11:23 WBC 11.8 H RBC 3.29 L Hgb 9.1 L Hct 28.7 L MCV 87.2 MCH 27.7 MCHC 31.7 L RDW 15.3 Plt Count 186 MPV 8.4 Neut % (Auto) 89.9 H Lymph % (Auto) 5.2 L [place] % (Auto) 4.7 Eos % (Auto) 0.1 Baso % (Auto) 0.1 Neut # (Auto) 10.6 H Lymph # (Auto) 0.6 L [place] # (Auto) 0.6 Eos # (Auto) 0.0 Baso # (Auto) 0.0 Total Counted 100 Neutrophils % (Manual) 89 H Band Neutrophils % Lymphocytes % (Manual) 5 L Monocytes % (Manual) 5 Eosinophils % (Manual) 1 Platelet Estimate Normal RBC Morphology Hypochromasia 1+ Specimen Source L femoral O2 % 100 ambu ABG pH 7.40 ABG pCO2 47.2 H ABG pO2 408.9 H ABG HCO3 28.3 H ABG Total CO2 29.7 H ABG O2 Saturation 100 ABG Base Excess 3.4 H Manav Test Vent Rate Tidal Volume PEEP Sodium 152 H* Potassium 4.4 Chloride 116 H Carbon Dioxide 29 Anion Gap 11.4 BUN 63 H Creatinine 1.40 H Estimated Creat Clear 58 Estimated GFR 49 L Est GFR ( Amer) 60 Glucose 268 H POC Glucose Lactate Calcium 8.4 Phosphorus Magnesium Total Bilirubin 0.4 AST 55 ALT 51 Alkaline Phosphatase 74 Troponin I 0.13 H Total Protein 5.1 L Albumin 2.5 L Globulin 2.6 Albumin/Globulin Ratio 1.0 L Urine Color Urine Appearance Urine pH Ur Specific [place] Urine Protein Urine Glucose (UA) Urine Ketones Urine Blood Urine Nitrate Urine Bilirubin Urine Urobilinogen Ur Leukocyte Esterase Urine RBC Urine WBC Ur Squamous Epith Cells Urine Bacteria Chla
[2020-07-23 16:00] VITALS: BP 145/65; PULSE 80; RESP 26; TEMP 36.9; O2SAT 92
[2020-07-23 16:12] LABS: POC Glucose,Bedside 146 (70-110)
--- NOTE | 2020-07-23 16:39 | PC.NURSE ---
Report called to Grecia @ [facility], 1538. [facility] called @ 2021.
== END 2020-07-23 16:20 | DRG 208 ==
LOC: ER 11:48 → 2ND 14:18
PROVIDERS: Internal Medicine Pulmonary Disease; Nurse Practitioner Family; Admitting Provider Emergency Medicine; Emergency Provider Emergency Medicine; PCP Emergency Medicine; Visit Provider Emergency Medicine
DX: J96.01 Acute respiratory failure with hypoxia (principal); I46.9 Cardiac arrest, cause unspecified; T83.511A Infection and inflammatory reaction due to indwelling urethral catheter, initial encounter; E87.0 Hyperosmolality and hypernatremia; J95.03 Malfunction of tracheostomy stoma; I48.19 Other persistent atrial fibrillation; G82.20 Paraplegia, unspecified; I45.10 Unspecified right bundle-branch block; I95.9 Hypotension, unspecified; Y84.6 Urinary catheterization as the cause of abnormal reaction of the patient, or of later complication, without mention of misadventure at the time of the procedure; B96.1 Klebsiella pneumoniae [K. pneumoniae] as the cause of diseases classified elsewhere; Z79.4 Long term (current) use of insulin; E13.51 Other specified diabetes mellitus with diabetic peripheral angiopathy without gangrene; Y83.3 Surgical operation with formation of external stoma as the cause of abnormal reaction of the patient, or of later complication, without mention of misadventure at the time of the procedure; Z93.1 Gastrostomy status; R56.9 Unspecified convulsions; Z88.5 Allergy status to narcotic agent; Z88.8 Allergy status to other drugs, medicaments and biological substances; I11.0 Hypertensive heart disease with heart failure; I50.9 Heart failure, unspecified
CPT/HCPCS: 94002; 94003 ×2; 36569; 31500; 36415; 71045; 71275; 80048; 80053; 81001; 82803; 82962; 83605; 83735; 84100; 84443; 84484; 85007; 85025; 87040; 87070; 87077; 87086; 87088; 87186; 87205; 87581; 87633; 87798; 92950; 93005; 93041; 93306; 94640; 94761; 96365; 96367; 96375; 99291; C1751; J0456; J1335; J2543; Q9967; U0003

== ENCOUNTER 2020-07-24 02:58 | Emergency (ER) | payer MEDICARE, SELFPAY ==
[2020-07-24 02:50] VITALS: BP 136/77; PULSE 77; RESP 24; TEMP 37.1; O2SAT 96; BMI 27.2
--- NOTE | 2020-07-24 02:56 | ECG_ITS ---
APPROVED REPORT Exam: Resting ECG HR:80 bpm ECG Measurements Heart Rate 80 AXES TN 198 P 70 QRSd 110 QRS -60 QT 442 T 45 QTc 509 Conclusion Normal sinus rhythm Left axis deviation Prolonged QT Abnormal ECG Electronically signed by : Max Graham, 07/25/2020 13:22:57
[2020-07-24 03:04] VITALS: BMI 27.2
--- NOTE | 2020-07-24 03:11 | XR_ITS ---
PROCEDURE: XR CHEST PORTABLE CLINICAL HISTORY: SOA COMPARISON: CT CT ANGIO CHEST from 07/17/2020 CR XR CHEST PORTABLE from 07/18/2020 CR XR CHEST PORTABLE from 07/20/2020 CR XR CHEST PORTABLE PICC PLAC from 07/23/2020 FINDINGS: Tracheostomy is noted. Median sternotomy and mediastinal clips noted. Left subclavian PICC line with its tip curved and overlies the proximal SVC, possibly at the confluence of the SVC and azygos vein. Cardiomegaly with central pulmonary vascular prominence. [id number] bilateral pleural effusions, worse on the left. Marginal improvement compared to the prior study. No lobar consolidation or pneumothorax. Right mid and lower zone infiltrates and left lung atelectasis are noted, demonstrate no significant interval change compared to prior study. Degenerative changes of the visualized thoracic spine and bilateral shoulder joints. IMPRESSION: Small bilateral pleural effusions, marginally improved compared to the prior study. Bilateral lower zone atelectasis. Cardiomegaly with central pulmonary vascular prominence. Dictated by: Claudette Mckeon 07/24/2020 08:39 Claudette Mckeon in OV 07/24/2020 08:39
[2020-07-24 03:15] LABS: ABG Base Excess 2.2 mmol/L (-2.4-2.3); ABG HCO3 26.6 mmhg (22.0-26.0); ABG Oxygen Saturation 91 % (90-100); ABG PCO2 41.4 mmhg (35.0-45.0); ABG PH 7.43 mmol/L (7.35-7.45); ABG PO2 60.1 mmhg (80-100); ABG TCO2 27.9 mmhg (23-27)
[2020-07-24 03:17] LABS: Allen's Test Acceptable; Oxygen 4 %; Source Right Radial
[2020-07-24 03:20] LABS: Microscopic, Urine URINE MICROSCOPIC (MICROSCOPIC)
[2020-07-24 03:23] LABS: Appearance,Urine CLEAR (Clear); Basophils % 0.1 % (0.1-2.0); Bilirubin,Urine Negative (Negative); Blood, Urine TRACE-I (Negative); Color,Urine YELLOW (Yellow); Eosinophils # 0.2 K/mm3 (0.0-0.4); Eosinophils % 2.2 % (0.1-12.0); Glucose,Urine (UA) Negative (Negative); Hematocrit 29.7 % (42.0-52.0); Hemoglobin 9.7 g/dL (14.1-18.0); Ketones,Urine Negative (Negative); Leukocyte Esterase,Urine Negative (Negative); Lymphocytes # 0.9 K/mm3 (0.7-4.5); Lymphocytes % 13.1 % (10-50); Mean Corpuscular HGB Conc 32.6 g/dL (31.8-35.4); Mean Corpuscular Hemoglobin 27.7 pg (27.0-31.2); Mean Corpuscular Volume 84.9 fl (80-94); Mean Platelet Volume 8.4 fl (7.4-10.4); Monocytes # 0.3 K/mm3 (0.1-1.0); Monocytes % 4.3 % (1.7-9.3); Neutrophils # 5.6 K/mm3 (1.8-7.8); Neutrophils % 80.3 % (37.0-80.0); Nitrate,Urine Negative (Negative); PH,Urine 7.5 (5.0-8.5); Platelet Count 210 K/mm3 (142-424); Protein,Urine Negative (Negative); Red Cell Distribution Width 15.7 % (11.5-17.5); Specific Gravity, Urine 1.015 (1.005-1.030); Urobilinogen,Urine 0.2 EU/dl (0.2)
[2020-07-24 03:30] VITALS: BP 105/60; PULSE 73; RESP 24
[2020-07-24 03:30] LABS: Alanine Aminotransferase 25 U/L (12-78); Alkaline Phosphatase 82 U/L (38-126); Anion Gap 8.7 mEq/L (5-15); Aspartate Amino Transferase 28 U/L (17-59); Bilirubin,Total 0.3 mg/dl (0.2-1.3); Blood Urea Nitrogen 16 mg/dl (9-20); Calcium 8.5 mg/dl (8.4-10.2); Carbon Dioxide 29 mmol/L (22.0-30.0); Chloride 104 mmol/L (98-107); Creatinine Clearance Estimated 77 mL/min (50-200); Estimated Glomerular Filt Rate 73 ml/min (>60); GFR (African American) 88 ML/MIN (>60); Glucose 227 mg/dl (74-100); Potassium 4.7 mmoL/L (3.5-5.1); Sodium 137 mmol/L (136-145)
[2020-07-24 03:31] LABS: Lactic Acid 0.8 mmol/L (0.7-2.1)
[2020-07-24 03:32] LABS: Adenovirus,PCR Not Detected (NotDetected); Bordetella Pertussis Not Detected (NotDetected); Chlamydophila Pneumoniae, PCR Not Detected (NotDetected); Coronavirus 19, PCR Not Detected (NotDetected); Coronavirus 229E Not Detected (NotDetected); Coronavirus NL63 Not Detected (NotDetected); Coronavirus OC43 Not Detected (NotDetected); Coronovirus HKU1,PCR Not Detected (NotDetected); Human Metapneumovirus Not Detected (NotDetected); Influenza A, PCR Not Detected (NotDetected); Influenza AH1, 2009 Not Detected (NotDetected); Influenza AH1, PCR Not Detected (NotDetected); Influenza AH3,PCR Not Detected (NotDetected); Influenza B, PCR Not Detected (NotDetected); Mycoplasma Pneumoniae, PCR Not Detected (NotDetected); Parainfluenza 1, PCR Not Detected (NotDetected); Parainfluenza 2, PCR Not Detected (NotDetected); Parainfluenza 3, PCR Not Detected (NotDetected); Parainfluenza 4, PCR Not Detected (NotDetected); Respiratory Syncytial Virus Not Detected (NotDetected); Rhinovirus/Enterovirus Not Detected (NotDetected)
[2020-07-24 03:34] LABS: Bacteria,Urine Trace /lpf; RBC,Urine Occasional #/hpf (0-3)
[2020-07-24 03:35] LABS: C-Reactive Protein 18.4 mg/L (0-4)
[2020-07-24 03:49] LABS: Erythrocyte Sedimentation Rate > 140 mm/hr (0-20); Procalcitonin 0.136 ng/mL (0.0-2.0)
[2020-07-24 03:59] LABS: Troponin I < 0.01 ng/ml (0.00-0.034)
[2020-07-24 04:00] VITALS: BP 105/65; PULSE 75; RESP 26; O2SAT 97
[2020-07-24 04:24] LABS: T4 (Thyroxine) 3.2 ug/dl (5.53-11.0)
[2020-07-24 04:30] VITALS: BP 114/70; RESP 14; O2SAT 97
--- NOTE | 2020-07-24 04:52 | HMH.EDSOB ---
ED Disposition Clinical Impression: Acute exacerbation of chronic obstructive airways disease, Hypothyroidism (acquired), Tracheostomy dependent, Feeding by G-tube Disposition: Home, Self-Care Condition on Discharge: Good Instructions: DI for Chronic Obstructive Pulmonary Disease Additional Instructions: will increase thyroid med Referrals: Terrence Hidalgo MD [Primary Care Provider] - - Critical Care Critical Care Time: No Attestation: On 07/24/20, the high probability of a clinically significant, sudden or life threatening deterioration of the following system(s) required my full and direct attention, intervention and personal management. The time I documented below is in addition to time spent performing reported procedures but includes the following listed in this critical care notation. Medical Decision Making - Medical Records Medical records reviewed: Yes: I reviewed the patient's medical records. - Martin Inquiry Pt receiving controlled substance: No Vital Signs: 07/24/20 02:50 07/24/20 03:30 07/24/20 04:00 Temperature 98.7 F Temperature Source Rectal Pulse Rate 73 75 Pulse Rate [Right] 77 Respiratory Rate 24 24 26 H Blood Pressure 105/60 L 105/65 L Blood Pressure [Right Arm] 136/77 Blood Pressure Mean 75 79 Blood Pressure Mean [Right Arm] 96 02 Sat by Pulse Oximetry 96 97 Oxygen Delivery Method [place] Oxygen Flow Rate (LPM) 4 07/24/20 04:30 07/24/20 05:00 Temperature Temperature Source Pulse Rate 68 Pulse Rate [Right] Respiratory Rate 14 14 Blood Pressure 114/70 120/73 Blood Pressure [Right Arm] Blood Pressure Mean 87 89 Blood Pressure Mean [Right Arm] 02 Sat by Pulse Oximetry 97 98 Oxygen Delivery Method Oxygen Flow Rate (LPM) - Lab Data Lab results reviewed: Yes: I reviewed the patient's lab results. Lab Results 07/24/20 02:58: Chlamy pneumoniae PCR Not detected, Adenovirus (PCR) Not detected, B. pertussis DNA (PCR) Not detected, Coronavirus OC43 (PCR) Not detected, Coronavirus HKU1 (PCR) Not detected, Coronavirus 229E (PCR) Not detected, SARS-CoV-2 (PCR) Not detected, Coronavirus NL63 (PCR) Not detected, Human Metapneumovir PCR Not detected, Influenza A (H1) PCR Not detected, Influ A (H1N1/09) PCR Not detected, Influenza A (H3) PCR Not detected, Influenza Type A (PCR) Not detected, Influenza Type B (PCR) Not detected, M. pneumoniae (PCR) Not detected, Parainfluenza 1 (PCR) Not detected, Parainfluenza 2 (PCR) Not detected, Parainfluenza 3 (PCR) Not detected, Parainfluenza 4 (PCR) Not detected, RSV (PCR) Not detected, Entero/Rhino (PCR) Not detected 07/24/20 03:09: Specimen Source Right radial, O2 % 4, ABG pH 7.43, ABG pCO2 41.4, ABG pO2 60.1 L, ABG HCO3 26.6 H, ABG Total CO2 27.9 H, ABG O2 Saturation 91, ABG Base Excess 2.2, Manav Test Acceptable 07/24/20 03:13: WBC 7.0, RBC 3.50 L, Hgb 9.7 L, Hct 29.7 L, MCV 84.9, MCH 27.7, MCHC 32.6, RDW 15.7, Plt Count 210, MPV 8.4, Neut % (Auto) 80.3 H, Lymph % (Auto) 13.1, [place] % (Auto) 4.3, Eos % (Auto) 2.2, Baso % (Auto) 0.1, Neut # (Auto) 5.6, Lymph # (Auto) 0.9, [place] # (Auto) 0.3, Eos # (Auto) 0.2, Baso # (Auto) 0.0, ESR > 140 H 07/24/20 03:13: Sodium 137, Potassium 4.7, Chloride 104, Carbon Dioxide 29, Anion Gap 8.7, BUN 16, Creatinine 1.00, Estimated Creat Clear 77, Estimated GFR 73, Est GFR ( Amer) 88, Glucose 227 H D, Calcium 8.5, Total Bilirubin 0.3, AST 28, ALT 25, Alkaline Phosphatase 82, C-Reactive Protein 18.4 H, Total Protein 6.0 L, Albumin 3.0 L, Globulin 3.0, Albumin/Globulin Ratio 1.0 L, Procalcitonin 0.136 07/24/20 03:13: Lactate 0.8 07/24/20 03:13: Urine Color Yellow, Urine Appearance Clear, Urine pH 7.5, Ur Specific [place] 1.015, Urine Protein Negative, Urine Glucose (UA) Negative, Urine Ketones Negative, Urine Blood Trace-i, Urine Nitrate Negative, Urine Bilirubin Negative, Urine Urobilinogen 0.2, Ur Leukocyte Esterase Negative, Urine RBC Occasional, Urine Bacteria Trace 07/24/20 03:13: Troponin I
[2020-07-24 05:00] VITALS: BP 120/73; PULSE 68; RESP 14; O2SAT 98
--- NOTE | 2020-07-24 05:36 | PC.NURSE ---
notified angi that pt is ready to be transported back to [facility]
[2020-07-24 05:59] VITALS: BP 127/72; PULSE 67; RESP 98; TEMP 36.9
[2020-07-28 14:50] LABS: Levetiracetam (Keppra) 33.5 ug/mL (10.0-40.0)
== END 2020-07-24 06:02 | disposition home or self-care (01) ==
PROVIDERS: Emergency Provider Emergency Medicine; PCP Emergency Medicine
DX: J44.1 Chronic obstructive pulmonary disease with (acute) exacerbation (principal); E03.9 Hypothyroidism, unspecified; E11.9 Type 2 diabetes mellitus without complications; I48.91 Unspecified atrial fibrillation; I50.9 Heart failure, unspecified; Z93.0 Tracheostomy status; Z93.1 Gastrostomy status; E78.5 Hyperlipidemia, unspecified; Z79.899 Other long term (current) drug therapy; Z20.822 Contact with and (suspected) exposure to COVID-19
CPT/HCPCS: 71045; 80053; 80177; 81001; 82803; 83605; 84145; 84436; 84443; 84484; 85025; 85651; 86140; 87040; 87581; 87633; 87798; 93005; 99284